=== PATIENT | male | born 1935 | race African-American/Black ===

== ENCOUNTER → 2016-06-28 | Outpatient (CLI) | payer OTHER, BC ==
--- NOTE | 2016-06-28 11:17 | MR ---
MRI Lower Extremity, Right Hip HISTORY: Right hip pain. TECHNIQUE: MRI was performed of the right hip and pelvis using a 1.5 [employer] MRI system. Large field-of -view coronal and axial imaging was obtained of the pelvis. Small oakue-og-ggdv oblique axial, obliqu e coronal, and sagittal imaging was obtained of the right hip. Standard imaging sequences were perfor med. FINDINGS: Subtle bone marrow edema is seen on the sacral side of the right sacroiliac joint. No evide nce for fracture line. No evidence for avascular necrosis of the femoral head or stress fracture of t he femoral neck. Multilevel degenerative disk and degenerative joint disease is seen in the lower lum bar spine. Femoral head neck junction of the right hip is within normal limits without evidence for an osseous b ump. There is mild periarticular spurring in the femoral head and superior acetabulum. Slight cartila ge thinning is seen superiorly. Degenerative signal and fraying is seen in the anterior superior labr um. No evidence for displaced labral tear. Capsule is unremarkable. There is abnormal signal intensity in the common hamstring tendon origin with attenuation particularl y of the semimembranosus origin at the ischial tuberosity. Milder abnormal signal intensity and atten uation is seen in the left common hamstring tendon origin. Mild edema is seen in the gluteus tendon i nsertion of the greater trochanter bilaterally without attenuation. IMPRESSION: 1. Mild early degenerative change right hip with diminutive frayed anterior-superior labrum. 2. Moderate tendinopathy and partial tear right common hamstring tendon origin. Mild tendinopathy and partial tear left common hamstring tendon origin. 3. Mild tendinopathy gluteus tendon insertion of the greater trochanter bilaterally. 4. Multilevel degenerative disk and degenerative joint disease lumbar spine.
== END ==
LOC: FIMAGING 07:56
PROVIDERS: ATTEND Family Medicine Sports Medicine
DX: M24.151 Other articular cartilage disorders, right hip (principal); M76.01 Gluteal tendinitis, right hip; M51.36 Other intervertebral disc degeneration, lumbar region

== ENCOUNTER → 2016-11-13 | Outpatient (CLI) | payer OTHER, BC | LOC: BHCLAF 08:30 | PROVIDERS: ATTEND Internal Medicine Cardiovascular Disease | DX: R06.00 Dyspnea, unspecified (principal); I34.9 Nonrheumatic mitral valve disorder, unspecified | CPT/HCPCS: 93306-PO ==

== ENCOUNTER 2016-12-07 09:34 | Day surgery (SDC) | payer OTHER, BC ==
[2016-12-07] MEDS ORDERED: DIAZEPAM 5 MG TAB PO ONE (09:39)
[2016-12-07] MEDS ORDERED: NS 1,000 ML IV ONE (09:39)
[2016-12-07] MEDS ORDERED: ASPIRIN EC 325 MG TAB PO ONE (09:39)
[2016-12-07] MEDS ORDERED: diphenhydrAMINE 25 MG CAP PO ONE (09:39)
[2016-12-07] MEDS ORDERED: FAMOTIDINE 20 MG TAB PO ONE (09:39)
--- NOTE | 2016-12-07 09:59 | CPEKG ---
Heart Rate: 65 RR Interval: 923 P-R Interval: 176 QRSD Interval: 140 QT Interval: 444 QTC Interval: 462 P [place]: 45 QRS [place]: 48 T Wave [place]: -17 EKG Severity - ABNORMAL ECG - EKG Impression: SINUS RHYTHM EKG Impression: RIGHT BUNDLE BRANCH BLOCK EKG Impression: BORDERLINE INFERIOR Q WAVES EKG Impression: RBBB IS NEW IN COMPARISON TO PRIOR (10-OCT-14) Electronically Signed By: Sean Foley 07-Dec-2016 09:59:31
[2016-12-07 10:13] LABS: % IMMATURE GRANULYOCYTES 0.4 % (0.0-1.1); ABSOLUTE IMMATURE GRANULOCYTES 0.01 10^3/uL (0.00-0.10); ADD DIFF? NO; ADD MORPH? NO; ADD SCAN? NO; ATYPICAL LYMPHOCYTE FLAG 60 (0-99); FRAGMENT RBC FLAG 0 (0-99); HEMATOCRIT 40.5 % (40.0-51.0); HEMOGLOBIN 13.5 g/dL (13.7-17.5); LEFT SHIFT FLG 0 (0-99); LIPEMIA HEMOLYSIS FLAG 80 (0-99); MEAN CELL HEMOGLOBIN 31.6 pg (27.9-34.1); MEAN CELL HEMOGLOBIN CONCENTR. 33.3 g/dL (32.4-36.7); MEAN CELL VOLUME 94.8 fL (81.5-99.8); MEAN PLATELET VOLUME 10.4 fL (8.7-11.7); PLATELET CLUMPS FLAG 10 (0-99); PLATELET COUNT 109 10^3/uL (150-400); RED BLOOD CELL COUNT 4.27 10^6/uL (4.40-6.38)
[2016-12-07] MEDS ORDERED: CLOPIDOGREL BISULFATE 75 MG TAB PO ONE (10:15)
[2016-12-07 10:21] LABS: INR 1.07 (0.83-1.16); PROTIME(PATIENT) 13.8 SEC (12.0-15.0)
[2016-12-07 10:41] LABS: ANION GAP 11 mEq/L (8-16); CALCIUM 9.8 mg/dL (8.5-10.4); CARBON DIOXIDE 23 mEq/l (22-31); CHLORIDE 107 mEq/L (97-110); CHOLESTEROL 204 mg/dL (140-220); CHOLESTEROL/HDL RATIO 6.38 RATIO (1.00-4.97); CREATININE 0.9 mg/dL (0.7-1.3); GLOMERULAR FILTRATION RATE > 60; GLUCOSE 100 mg/dL (70-100); HIGH DENSITY LIPOPROTEIN 32 mg/dL (40-65); LDL/HDL RATIO 3.69 RATIO (1.00-3.64); LOW DENSITY LIPOPROTEIN 118 mg/dL (80-100); MAGNESIUM 1.9 mg/dL (1.6-2.3); NON-HIGH DENSITY LIPOPROTEIN 172 mg/dL (90-129); POTASSIUM 4.1 mEq/L (3.5-5.2); SODIUM 141 mEq/L (134-144); TRIGLYCERIDE 274 mg/dL (40-150); VERY LOW DENSITY LIPOPROTEINS 54 mg/dL (8-25)
[2016-12-07] MEDS ORDERED: MIDAZOLAM 2 MG/2 ML VIAL ONE (10:49)
[2016-12-07] MEDS ORDERED: fentaNYL 100 MCG/2 ML INJ ONE (10:49)
[2016-12-07] MEDS ORDERED: IOPAMIDOL (ISOVUE-370) 150 ML BTL IV ONE (10:49)
[2016-12-07] MEDS ORDERED: LIDOCAINE 1% 300 MG/30 ML SDV ONE (10:49)
--- NOTE | 2016-12-07 13:00 | CPIP ---
[f rep st] INVASIVE CARDIAC PROCEDURE DATE OF PROCEDURE: 12/07/2016 PROCEDURE: 1. Coronary angiography. 2. Left ventriculography. INDICATIONS: 1. Known coronary artery disease. 2. Dyspnea on exertion. 3. Severe mitral regurgitation. 4. Anticipation of mitral valve surgery. ACCESS: Patient was prepped and draped in sterile fashion. 1% lidocaine was used to anesthetize th e right inguinal region. A 6-Djiboutian introducer sheath was placed selectively into the right common femoral artery via modified Seldinger technique. CORONARY ANGIOGRAPHY: A 6-Djiboutian JL4 was advanced to the left main coronary artery and images obtai nikita. The left main coronary artery bifurcated into LAD and circumflex coronary arteries. The left main coronary artery had a distal 15% to 20% stenosis present. The left anterior descending coronar y artery is diffusely diseased. In the proximal segment, there was ectasia present. In the mid seg ment, there is a single discrete 50% to 70% stenosis present. The first diagonal artery was a large vessel. The first diagonal artery had a proximal 70% stenosis present. The circumflex coronary ar candelaria was a small to moderate sized vessel. The circumflex coronary artery had mild diffuse disease with no stenosis greater than 20%. A 6-Djiboutian JR4 was advanced to the right coronary artery and mary ges obtained. The right coronary artery is dominant. The right coronary artery had proximal ectasi a. In the distal vessel, stents can be seen extending into the posterior descending coronary artery . There was focal ostial narrowing of the ostium of the posterior descending coronary artery approa daphne 50% to 70% in severity. LEFT VENTRICULOGRAPHY: A 6-Djiboutian pigtail catheter was advanced into the left ventricle and images obtained. Left ventricle is normal in size and had normal systolic function. Estimated ejection fr action of 60%. 3+ mitral regurgitation can be seen. COMPLICATIONS: None. CONCLUSIONS: 1. Fchblbgf-gz-mqyhri coronary artery disease. 2. Severe mitral regurgitation. 3. Normal left ventricular systolic function. 4. Plan is for surgical evaluation of mitral valve and CABG x3. /[id number]/MODL
== END 2016-12-07 17:04 | disposition home or self-care (01) ==
LOC: FCATH 09:34
PROVIDERS: ATTEND Internal Medicine Cardiovascular Disease
PROC: B2151ZZ Fluoroscopy of Left Heart using Low Osmolar Contrast (ICD-10-PCS; principal; 2016-12-07)
PROC: 4A023N7 Measurement of Cardiac Sampling and Pressure, Left Heart, Percutaneous Approach (ICD-10-PCS; principal; 2016-12-07)
PROC: B2111ZZ Fluoroscopy of Multiple Coronary Arteries using Low Osmolar Contrast (ICD-10-PCS; principal; 2016-12-07)
DX: I25.10 Atherosclerotic heart disease of native coronary artery without angina pectoris (principal); I34.0 Nonrheumatic mitral (valve) insufficiency; I10 Essential (primary) hypertension; E78.5 Hyperlipidemia, unspecified
CPT/HCPCS: C1760; J1644; J2250; J3010; Q9967

== ENCOUNTER → 2017-01-19 | Outpatient (CLI) | payer OTHER, BC | LOC: BHFA 11:00 | PROVIDERS: ATTEND Internal Medicine | DX: Z01.818 Encounter for other preprocedural examination (principal) ==

== ENCOUNTER → 2017-01-22 | Outpatient (CLI) | payer OTHER, BC | LOC: BHFA 09:15 | PROVIDERS: ATTEND Thoracic Surgery (Cardiothoracic Vascular Surgery) | DX: Z01.810 Encounter for preprocedural cardiovascular examination (principal) ==

== ENCOUNTER 2017-01-25 06:51 | Inpatient (IN) | payer OTHER, BC ==
--- NOTE | 2017-01-25 06:42 | PDGENHP ---
History and Physical - Chief Complaint preop CABG, MVR - History of Present Illness 81 yo male with known CAD and MR recently re-evaluated for worsening exertional dyspnea and chest pains and found to have progression of both coronary disease and mitral insufficiency into severe range. Associated with onset of LVE and inferior RWMA. LVEF 60%. No significant atrial enlargement, TR or PHTN. Holter monitoring negative for AF. History Information - Allergies/Home Medication List Allergies/Adverse Reactions: No Known Allergies Allergy (Verified 01/01/17 15:43) Home Medications: Aspirin [Aspirin 325 mg (OTC)] 325 mg PO HS 01/24/14 [Last Taken 12/06/16 162mg] Clopidogrel Bisulfate [Plavix (RX)] 75 mg PO DAILY 01/24/14 [Last Taken 12/07/16 ] Esomeprazole Mag Trihydrate [Nexium] 40 mg PO BID 05/23/16 [Last Taken 12/06/16 21:00] Mometasone Furoate [Elocon Cream (*)] 1 j luis TP DAILY PRN 05/23/16 [Last Taken ] Nitroglycerin [Nitrostat 0.4 mg (*)] 0.4 mg SL Q5M PRN 05/23/16 [Last Taken ] [place]-3 Fatty Acids [Fish Oil 1000 mg (*)] 2,000 mg PO BID 05/23/16 [Last Taken 12/06/16 21:00] Polyethylene Glycol 3350 [Miralax 17 gm (*)] 17 gm PO DAILY 05/23/16 [Last Taken 12/06/16] metFORMIN HCL [Metformin HCl ER] 500 mg PO DAILY 05/23/16 [Last Taken 12/06/16] Lisinopril [Zestril 20 mg (*)] 20 mg PO DAILY 12/07/16 [Last Taken 12/06/16] Metoprolol Succinate Xr [Toprol Xl 25 mg (*)] 25 mg PO DAILY 12/07/16 [Last Taken 12/06/16] Herbals/Supplements -Info Only 01/01/17 [Last Taken Unknown] Ranitidine HCl 01/01/17 [Last Taken Unknown] I have personally reviewed and updated: medical history, social history, surgical history - Past Medical History coronary artery disease (ectatic), cancer (prostate), diabetes type 2, GERD, hypertension, hyperlipidemia, myocardial infarction (Inferior wall, 2006, treated with stenting of distal RCA) Additional medical history: Systolic murmur since early adulthood, identified as MR 2006. NonHodgkins lymphoma 2004, recurrence in 2008. s/p chemo and XRT. No adenopathy by CT in 2016. 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 Urinary incontinence s/p prostate surgery. Chronic constipation. [place]ile fever 2009 - Surgical History Reports: cancer surgery (radical prostatectomy 1999), hernia repair (left inguinal, ) Additional surgical history: cataracts. hemorrhoids - Social History Smoking Status: Former smoker (10 pk yr, quitting in 1960s) Review of Systems ROS: 10pt was reviewed & negative except for what was stated in HPI & below (no new symptoms since clinic H&P December 2016) Constitutional: Reports: no symptoms Physical Exam Constitutional: no apparent distress, appears nourished Eyes: anicteric sclera Ears, Nose, Mouth, Throat: moist mucous membranes Cardiovascular: regular rate and rhythym, systolic murmur Peripheral Pulses: 2+: dorsalis-pedis (R), dorsalis-pedis (L) Respiratory: clear to auscultation Gastrointestinal: normoactive bowel sounds, soft, non-tender abdomen Skin: warm Musculoskeletal: other (symmetric tone) Psychiatric: interacting appropriately, not anxious Lab Data & Imaging Review Patient ABO/Rh A POSITIVE 01/24/17 16:00 Antibody Screen NEGATIVE 01/24/17 16:00 01/24/17: WBC 3.4, Hgb 13.5, HCT 40.8, Plt 135, Na 141, K 4.1, BUN 21, Cr 0.9, Glc 117, HgbA1c 6.8% Visualized and Interpreted Chest x-ray results: No Visualized and Interpreted EKG results: Yes EKG Interpretation: Positive for: normal sinsus rhythm (65), Q waves (lead III) , right bundle branch block Assessment & Plan Assessment: Severe 2V CAD with preserved LV systolic fx Severe MR Dilated valvular cardiomyopathy DM2, controlled Chronic leukopenia, baseline 2.4-3.4 Chronic thrombocytopenia, baseline 100s-150 Plan: CABG, mitral repair/replace, and prophylactic ligation of left atrial appendage. Consents per Dr Christopher.
[~2017-01-25 06:51] MED LIST: ADENOSINE 6 MG/2 ML VIAL ONE; ALBUMIN 5% 250 ML BOTTLE IV ONE; AMINOCAPROIC ACID 5 GM/20 ML VIAL IV ONE; AMINOCAPROIC ACID 5 GM/20 ML VIAL ONE; AMIODARONE HCL 150 MG/3 ML VIAL ONE; CALCIUM CHLORIDE 1 GM/10 ML INJ ONE; CITRATE DEXTROSE SOLN 500 ML BAG MISC ONE; CITRATE DEXTROSE SOLN 500 ML BAG ONE; DOPamine/DEXTROSE/250 ML BAG IV ONE; HEPARIN 10,000 UNIT/10 ML MDV ONE; INSULIN REGULAR HUMAN 100 UNIT in NS 100 ML IV ONE; LIDOCAINE 1% 5 ML SDV ID PRN; LIDOCAINE 2% 100 MG/5 ML SYR ONE; MAGNESIUM SULFATE 1 GM/2 ML VIAL ONE; MANNITOL 25% 12.5 GM/50 ML VIAL IV ONE; MILRINONE/DEXTROSE/100 ML BAG IV ONE; NA BICARBONATE 50 MEQ/50 ML VIAL ONE; NOREPINEPHRINE BITARTRATE 16 MG in NS 250 ML IV ONE; PHENYLEPHRINE HCL 50 MG in NS 250 ML IV ONE; POTASSIUM Cl (KCl) 20 MEQ/50 ML BAG IV ONE; PROTAMINE SULFATE 50 MG/5 ML VIAL IVP ONE; SODIUM BICARBONATE 20 MEQ, LIDOCAINE 1% 10 ML in NORMOSOL-R 1,000 ML MISC ONE; VERAPAMIL 5 MG, NITROGLYCERIN 2.5 MG, HEPARIN 500 UNIT, SODIUM BICARBONATE 0.2 MEQ in L... MISC ONE; ceFAZolin 1 GM VIAL ONE; ceFAZolin 2 GM/DEXTROSE 100 ML IV ONE; methylPREDNISolone SOD SUCC 1 GM/8 ML VIAL ONE; niCARdipine/NACL 200 ML IV ONE; niCARdipine/NACL/200 ML BAG IV ONE
[2017-01-25] MEDS ORDERED: LIDOCAINE 1% 2 ML INJ ONE (07:46)
--- NOTE | 2017-01-25 07:46 | PDANEPAE ---
ANE History of Present Illness here for mvr cabg ANE Past Medical History - Cardiovascular History Hx Hypertension: Yes Hx Arrhythmias: Yes Hx Chest Pain: No Hx Coronary Artery / Peripheral Vascular Disease: Yes Hx CHF / Valvular Disease: No Hx Palpitations: No Cardiovascular History Comment: stents x 2, [place] 2006. heart murmur. cad. htn. hyperlipidemia. mitral regurg - Pulmonary History Hx COPD: No Hx Asthma/Reactive Airway Disease: No Hx Recent Upper Respiratory Infection: No Hx Oxygen in Use at Home: No Hx Sleep Apnea: Yes Sleep Apnea Screening Result - Last Documented: Positive Pulmonary History Comment: lilian positive uses cpap- instructed pt to bring to hospital - Neurologic History Hx Cerebrovascular Accident: No Hx Seizures: No Hx Dementia: No - Endocrine History Hx Diabetes: Yes Endocrine History Comment: type 2 - Renal History Hx Renal Disorders: No - Liver History Hx Hepatic Disorders: No - Neurological & Psychiatric Hx Hx Neurological and Psychiatric Disorders: No - Cancer History Hx Cancer: Yes Cancer History Comment: non- hodgkins lymphoma with chemo and radiation - Congenital Disorder History Hx Congenital Disorders: No - GI History GERD: mild Hx Gastrointestinal Disorders: Yes Gastrointestinal History Comment: gerd. 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 Left inguinal hernia repair. right orchiectomy. prostate surgery. cardiac stents x 2. right knee surgery- arthroscopic ANE Review of Systems Review of systems is: negative - Exercise capacity Exercise capacity: <4 METS METS (RN): 3 METS ANE Patient History - Allergies Allergies/Adverse Reactions: No Known Allergies Allergy (Verified 01/01/17 15:43) - Home Medications Home medications: home medication list seen and reviewed Home Medications: Aspirin [Aspirin 325 mg (OTC)] 325 mg PO HS 01/24/14 [Last Taken 01/22/17] Clopidogrel Bisulfate [Plavix (RX)] 75 mg PO DAILY 01/24/14 [Last Taken 01/21/17 ] Esomeprazole Mag Trihydrate [Nexium] 40 mg PO BID 05/23/16 [Last Taken 01/22/17] Mometasone Furoate [Elocon Cream (*)] 1 j luis TP DAILY PRN 05/23/16 [Last Taken ] Nitroglycerin [Nitrostat 0.4 mg (*)] 0.4 mg SL Q5M PRN 05/23/16 [Last Taken ] [place]-3 Fatty Acids [Fish Oil 1000 mg (*)] 2,000 mg PO BID 05/23/16 [Last Taken 01/18/17] Polyethylene Glycol 3350 [Miralax 17 gm (*)] 17 gm PO DAILY 05/23/16 [Last Taken 01/24/17] metFORMIN HCL [Metformin HCl ER] 500 mg PO DAILY 05/23/16 [Last Taken 01/22/17] Lisinopril [Zestril 20 mg (*)] 20 mg PO DAILY 12/07/16 [Last Taken 01/24/17] Metoprolol Succinate Xr [Toprol Xl 25 mg (*)] 25 mg PO DAILY 12/07/16 [Last Taken 01/22/17] Herbals/Supplements -Info Only 01/01/17 [Last Taken 01/22/17] Ranitidine HCl 01/01/17 [Last Taken Unknown] - Smoking Hx Smoking Status: Former smoker (10 pk yr, quitting in 1960s) - Family Anes Hx Family Hx Anesthesia Complications: none ANE Labs/Vital Signs - Vital Signs Height: 178 cm Weight: 82.6 kg ANE Physical Exam - Airway Neck exam: FROM Mallampati Score: Class 1 Mouth exam: normal dental/mouth exam - Pulmonary Pulmonary: no respiratory distress - Cardiovascular Cardiovascular: regular rate and rhythym - ASA Status ASA Status: IV ANE Anesthesia Plan Anesthesia Plan: general endotracheal anesthesia Lines/Monitors: central line, FREYA
[2017-01-25] MEDS ORDERED: PROPOFOL/EMULSION 500 MG/50 ML BOTTLE IV ONE (07:58)
[2017-01-25] MEDS ORDERED: fentaNYL 100 MCG/2 ML INJ ONE ×5 (08:00→11:59)
[2017-01-25] MEDS ORDERED: MIDAZOLAM 2 MG/2 ML VIAL IVP ONE (08:04)
[2017-01-25] MEDS ORDERED: VERAPAMIL 5 MG/2 ML VIAL ONE (08:23)
[2017-01-25] MEDS ORDERED: PAPAVERINE HCL 60 MG/2 ML SDV ONE (08:23)
[2017-01-25] MEDS ORDERED: MINERAL OIL 10 ML VIAL ONE (08:24)
[2017-01-25] MEDS ORDERED: KETAMINE 100 MG/10 ML SYR ONE (08:54)
[2017-01-25] MEDS ORDERED: DEXMEDETOMIDINE HCL 400 MCG in NS 100 ML IV ONE (10:30)
[2017-01-25] MEDS ORDERED: PHENYLEPHRINE HCL 100 MCG/ML SYR ONE (12:02)
[2017-01-25] MEDS ORDERED: epHEDrine SULFATE 10 MG/ML SYR ONE (12:33)
[2017-01-25] MEDS ORDERED: MAGNESIUM SULF 2 GM/WATER 50 ML IV ONE (12:56)
[2017-01-25] MEDS ORDERED: PANTOPRAZOLE SODIUM 40 MG in NS 100 ML IV ONE (12:56)
[2017-01-25] MEDS ORDERED: ALBUMIN 5% 250 ML IV PRN (12:56)
[2017-01-25] MEDS ORDERED: POTASSIUM Cl (KCl) 50 ML IV PRN (12:56)
[2017-01-25] MEDS ORDERED: fentaNYL 100 MCG/2 ML INJ IVP PRN (12:56)
[2017-01-25] MEDS ORDERED: SODIUM CL NASAL 45 ML BTL EACHNARE PRN (12:56)
[2017-01-25] MEDS ORDERED: CEPACOL LOZENGE PO PRN (12:56)
[2017-01-25] MEDS ORDERED: BISACODYL 10 MG SUPP PR PRN (12:56)
[2017-01-25] MEDS ORDERED: POLYETHYLENE GLYCOL 3350 17 GM PKT PO PRN (12:56)
[2017-01-25] MEDS ORDERED: ONDANSETRON 4 MG/2 ML VIAL IVP PRN (12:56)
[2017-01-25] MEDS ORDERED: MEPERIDINE 25 MG/ML SYR IVP PRN (12:56)
[2017-01-25] MEDS ORDERED: D50W 25 GM/50 ML SYR IVP PRN (12:56)
[2017-01-25] MEDS ORDERED: ONDANSETRON DISINTEGRATING 4 MG TAB PO PRN (12:56)
[2017-01-25] MEDS ORDERED: ACETAMINOPHEN 650 MG SUPP PR PRN (12:56)
[2017-01-25] MEDS ORDERED: LACTULOSE 20 GM/30 ML UDCUP PO PRN (12:56)
[2017-01-25] MEDS ORDERED: MAGNESIUM HYDROXIDE 30 ML UDCUP PO PRN (12:56)
[2017-01-25] MEDS ORDERED: METOCLOPRAMIDE 10 MG/2 ML VIAL IVP PRN (12:56)
[2017-01-25] MEDS ORDERED: ALBUMIN 5% 500 ML BOTTLE IV ONE ×2 (12:59→14:05)
[2017-01-25] MEDS ORDERED: NS 1,000 ML IV SCH (13:00)
[2017-01-25] MEDS ORDERED: INSULIN REGULAR HUMAN 100 UNIT in NS 100 ML IV SCH (13:00)
[2017-01-25 13:49] LABS: CALCULATED OXYGEN SATURATION 100 % (92-95)
--- NOTE | 2017-01-25 13:53 | CPEKG ---
Heart Rate: 89 RR Interval: 674 P-R Interval: 172 QRSD Interval: 130 QT Interval: 436 QTC Interval: 531 P [place]: 69 QRS [place]: 107 T Wave [place]: 16 EKG Severity - ABNORMAL ECG - EKG Impression: SINUS RHYTHM EKG Impression: PAIRED VENTRICULAR PREMATURE COMPLEXES EKG Impression: RBBB AND LPFB Electronically Signed By: Ugo Sterling 25-Jan-2017 14:16:57
[2017-01-25] MEDS ORDERED: NALOXONE HCL 0.4 MG/ML INJ ONE (14:08)
[2017-01-25] MEDS ORDERED: CALCIUM CHLORIDE 1 GM/10 ML INJ IV ONE (14:30)
[2017-01-25 15:34] LABS: HEMATOCRIT 25.8 % (40.0-51.0); HEMOGLOBIN 8.4 g/dL (13.7-17.5); MEAN CELL HEMOGLOBIN 31.3 pg (27.9-34.1); MEAN CELL HEMOGLOBIN CONCENTR. 32.6 g/dL (32.4-36.7); MEAN CELL VOLUME 96.3 fL (81.5-99.8); RED BLOOD CELL COUNT 2.68 10^6/uL (4.40-6.38)
[2017-01-25] MEDS: MUPIROCIN 2% 22 GM OINT NS SCH ×3 (15:47→22:00)
[2017-01-25] MEDS: ceFAZolin 2 GM/DEXTROSE 100 ML IV SCH ×2 (15:57→21:05)
[2017-01-25] MEDS ORDERED: NALOXONE HCL 0.4 MG/ML INJ IVP ONE (16:00)
[2017-01-25] MEDS ORDERED: ALBUMIN 5% 500 ML IV ONE (16:00)
--- NOTE | 2017-01-25 16:38 | GCON ---
[f rep st] CONSULTATION CRITICAL CARE CONSULT DATE OF CONSULTATION: 01/25/2017 HISTORY OF PRESENT ILLNESS: The patient is an 81-year-old male with a history of coronary artery di sease and mitral regurgitation, who presented with increasing chest pain and exertional dyspnea and was found to have worsening cardiac disease. Subsequently, he underwent a coronary artery bypass gr aft today with mitral valve repair. The surgery itself was fairly uncomplicated. After arrival in the intensive care unit, did put out 600 cc of blood from his chest tubes, and received a transfusio n. During this time, his blood pressure was quite labile and was off and on pressors, but by the ti me of my exam later this afternoon, things were much more stable. There was very little chest tube output, and blood pressure was normal, without any vasopressor support. REVIEW OF SYSTEMS: Otherwise negative. PAST MEDICAL HISTORY: Includes gastroesophageal reflux disease, cervical radiculopathy, diabetes, h ypertension, non-Hodgkin's lymphoma, originally diagnosed in 2004, treated with chemotherapy and rad iation therapy. He had a recurrence in 2008 but has had no evidence of recent disease. He also has a history of prostate cancer, West Nile virus in 2009, mitral regurgitation, and coronary artery di sease, as described. PAST SURGICAL HISTORY: Includes right knee arthroscopy, cataract surgery, foot surgery, hemorrhoide ctomy, hernia repair, and radical prostatectomy. SOCIAL HISTORY: He has a remote smoking history, but none recently. Drinks some alcohol, but no al cohol-related illnesses, and no recreational drugs. FAMILY HISTORY: Includes cancer and hypertension. OUTPATIENT MEDICATIONS: Include aspirin 325 daily, Plavix 75 daily, fish oil, lisinopril 20 mg yaneli y, meclizine 25 mg daily, metformin 500 mg b.i.d., Nexium 40 mg daily, MiraLAX, ranitidine 150 mg da lucie, Toprol-XL 25 daily, zaleplon 10 mg daily, and Elocon. PHYSICAL EXAMINATION: VITAL SIGNS: His blood pressure was 100/50 and heart rate of 100, in normal sinus rhythm, respiratory rate of 12 on a ventilator, with a saturation of 100%. GENERAL: He was s edated and intubated, but in no apparent distress, not using accessory muscles for breathing. HEENT : Pupils equally round and reactive to light, nonicteric and noninjected. ET tube was in good posi tion, without excess secretions. LUNGS: Breath sounds were mildly coarse, but otherwise mostly britney ar, without wheezing. HEART: Appeared to have a regular rate and rhythm, without dullness. Mediasti nal chest tubes were in place, without evidence of surface bleeding. ABDOMEN: Soft, nontender, wit h hypoactive bowel tones. EXTREMITIES: Warm, without clubbing, cyanosis, or edema. OBJECTIVE DATA: Includes a chest x-ray with minor changes in the right lower lobe that are either t he chest tube angle or perhaps fluid in the fissure, but no large pleural effusion. There is a pleu ral effusion that looks to be on the left, and the right hemidiaphragm may be slightly elevated, tho ugh the left diaphragm is difficult to see. There is no pneumothorax. His blood gas looks normal a nd glucose 136. ASSESSMENT/PLAN: 1. Status post coronary artery bypass grafting and mitral valve replacement. Appears to be relativ caroline stable at this time. There did appear to be transient hemothorax, which may have resolved witho ut further intervention. Dr. Christopher is managing this primarily, and his hemodynamics appear to have stabilized. 2. Acute respiratory failure, requiring mechanical ventilation. Would certainly be reasonable to l eave him on the ventilator overnight, but given the stability of his situation at this time and lack of underlying pulmonary disease, weaning per protocol would be also quite reasonable. I would prob ably favor watching him on the vent overnight, and with extubation first thing in the morning. 3. Hemothorax, as described above. This appears to be fairly stable. We will follow his chest tub e output and the subsequent chest x-ray. 4. Hypertension. We should hold his medications for now. 5. Hypotension with hypovolemia. He seems to have responded well to the volume that he has gotten so far. A total of 40 minutes of critical care time was used in the evaluation of this patient. /[id number]/MODL
[2017-01-25 17:49] LABS: HEMATOCRIT 27.6 % (40.0-51.0); HEMOGLOBIN 9.2 g/dL (13.7-17.5); MEAN CELL HEMOGLOBIN 31.6 pg (27.9-34.1); MEAN CELL HEMOGLOBIN CONCENTR. 33.3 g/dL (32.4-36.7); MEAN CELL VOLUME 94.8 fL (81.5-99.8); RED BLOOD CELL COUNT 2.91 10^6/uL (4.40-6.38); RED CELL DISTRIBUTION WIDTH 14.9 % (11.5-15.2)
--- NOTE | 2017-01-25 18:24 | POSTANESTH ---
Post Anesthetic Evaluation Cardiovascular Status: Normal, Stable Respiratory Status: Normal, Stable Level of Consciousness/Mental Status: Mildly Sleepy, Arousable Pain Control: Adequate, Prn Tx Ordered Nausea/Vomiting Control: Adequate, Prn Tx Ordered Complications Possibly Related to Anesthesia: None Noted
[2017-01-25 19:31] LABS: CALCULATED OXYGEN SATURATION 96 % (92-95)
[2017-01-25] MEDS: FAMOTIDINE 20 MG/NACL 50 ML IV SCH (21:05)
[2017-01-25 23:20] LABS: HEMATOCRIT 29.1 % (40.0-51.0); HEMOGLOBIN 9.7 g/dL (13.7-17.5); MEAN CELL HEMOGLOBIN 30.7 pg (27.9-34.1); MEAN CELL HEMOGLOBIN CONCENTR. 33.3 g/dL (32.4-36.7); MEAN CELL VOLUME 92.1 fL (81.5-99.8); RED BLOOD CELL COUNT 3.16 10^6/uL (4.40-6.38); RED CELL DISTRIBUTION WIDTH 15.1 % (11.5-15.2)
[2017-01-26] MEDS: CHLORHEXIDINE GLUCONATE 15 ML UDL PO SCH ×2 (00:01→10:44)
[2017-01-26] MEDS: HYDROCODONE/APAP 5/325 TAB PO PRN ×6 (03:19→22:55)
[2017-01-26] MEDS: ACETAMINOPHEN 325 MG TAB PO PRN ×2 (03:20→06:10)
[2017-01-26 05:23] LABS: % IMMATURE GRANULYOCYTES 0.6 % (0.0-1.1); ABSOLUTE IMMATURE GRANULOCYTES 0.06 10^3/uL (0.00-0.10); ADD DIFF? NO; ADD MORPH? NO; ADD SCAN? NO; ATYPICAL LYMPHOCYTE FLAG 0 (0-99); FRAGMENT RBC FLAG 0 (0-99); HEMATOCRIT 28.1 % (40.0-51.0); HEMOGLOBIN 9.6 g/dL (13.7-17.5); LEFT SHIFT FLG 30 (0-99); LIPEMIA HEMOLYSIS FLAG 90 (0-99); MEAN CELL HEMOGLOBIN 31.6 pg (27.9-34.1); MEAN CELL HEMOGLOBIN CONCENTR. 34.2 g/dL (32.4-36.7); MEAN CELL VOLUME 92.4 fL (81.5-99.8); MEAN PLATELET VOLUME 9.9 fL (8.7-11.7); PLATELET CLUMPS FLAG 0 (0-99); PLATELET COUNT 66 10^3/uL (150-400); RED BLOOD CELL COUNT 3.04 10^6/uL (4.40-6.38); RED CELL DISTRIBUTION WIDTH 15.8 % (11.5-15.2)
[2017-01-26] MEDS: ceFAZolin 2 GM/DEXTROSE 100 ML IV SCH ×3 (05:27→21:17)
[2017-01-26 05:39] LABS: ANION GAP 11 mEq/L (8-16); CARBON DIOXIDE 23 mEq/l (22-31); CHLORIDE 111 mEq/L (97-110); CREATININE 0.7 mg/dL (0.7-1.3); GLOMERULAR FILTRATION RATE > 60; GLUCOSE 91 mg/dL (70-100); POTASSIUM 4.4 mEq/L (3.5-5.2); SODIUM 145 mEq/L (134-144)
--- NOTE | 2017-01-26 06:30 | SOAPPROG ---
SOAP Progress Note Assessment/Plan: Assessment: POD#1 CABG x 3 (LUCIO-LAD, SV-D1, SV-PDA), EVH LLE, MVR #29 Magna bioprosthesis, prophylactic AtriClip ligation left atrial appendage Progressive CAD w preserved LV systolic fx - s/p CABG3. Secondary prevention with baby ASA, BB as allowed by BP, and statin when eating well. Plavix stopped as PDA bypassed. Sx severe MR w dilated cardiomyopathy - MV not amenable to repair and replaced with a bioprosthesis. Hemodynamically labile early postop course, intermittently on low dose pressor support. No further support overnight. Adequately auto-diuresing moderate volume overload w stable renal fx. Antithrombotic prophylaxis with Coumadin x 3 mo. Target INR 2.5. Range 2-3. Acute expected blood loss anemia with thrombocytopenia and mild coagulopathy - Exacerbated by chronic thrombocytopenia and Plavix use. Stable s/p 2u PRBC. CTOP thinning. No evidence active bleeding. Care with anticoagulation while platelet counts depressed. DM2, controlled - Preop A1c of 6.8%, on OHAs. Postop hyperglycemia managed with insulin gtt. Transition to SSI as per protocol. Likely can restart metformin within 48hrs. CARLOS on CPAP - Stable. Home device in use. Plan: Routine POD#1 orders re lines, drains, orals and mobility. Likely tx to PCU later today. 01/26/17 06:26 Subjective: Rough night d/t pain. Currently comfortable. No nausea or dizziness. Objective: Vital Signs Temp Pulse Resp BP Pulse Ox 37.2 C 87 15 127/56 H 99 01/26/17 05:00 01/26/17 05:00 01/26/17 05:00 01/26/17 05:00 01/26/17 05:00 Laboratory Results 01/26/17 05:15 01/26/17 05:15 01/25/17 01/26/17 01/27/17 05:59 05:59 05:59 Intake Total 500 Output Total 3125 Balance -2625 Extubated last pm without incident. Home CPAP used. Modest suppl O2 req. Holding SR, no tachyarrhythmias. No backup pacing triggered. MAPs predom 70s overnoc. Excellent UOP. CXR-> No PTX, no pulm vasc congestion, bibasilar atelectasis; left pl tube a bit cephalad and gutter w small eff. CTOP somewhat elev first few hrs after surg, tapering off by last shift. Labs as expected. Plts stable in 60 range. Physical Exam - Physical Exam General Appearance: alert, no apparent distress Respiratory: lungs clear (grossly), other (blakes x 3 y-d to pleurovac, serosang drainage, no tidal, no AL) Cardiac/Chest: regular rate, rhythm, other (Sternum grossly stable. Sternotomy CDI. Vwires intact.) Abdomen: non-tender, soft Skin: warm/dry Extremities: swelling (trace - 1+), other (LLE wrap intact) ICD10 Worksheet Patient Problems: Problems Problem Status Onset Acute blood loss anemia Acute S/P CABG x 3 Acute ~01/25/17 S/P mitral valve replacement with bioprosthetic valve Acute ~01/25/17 CAD, multiple vessel Chronic Chronic leukopenia Chronic Dilated cardiomyopathy Chronic Severe mitral regurgitation Chronic Thrombocytopenia Chronic
[2017-01-26] MEDS ORDERED: HEPARIN 5,000 UNIT/0.5 ML SYR SC SCH (09:00)
[2017-01-26] MEDS ORDERED: ASPIRIN 81 MG CHEWABLE TAB TUBE PRN (09:00)
[2017-01-26 09:48] LABS: POTASSIUM 4.7 mEq/L (3.5-5.2)
[2017-01-26] MEDS: FAMOTIDINE 20 MG/NACL 50 ML IV SCH (10:43)
[2017-01-26] MEDS: PANTOPRAZOLE SODIUM 40 MG TAB PO SCH (10:44)
[2017-01-26] MEDS: MUPIROCIN 2% 22 GM OINT NS SCH ×2 (10:44→20:11)
[2017-01-26] MEDS: ASPIRIN 81 MG CHEWABLE TAB PO SCH (10:44)
[2017-01-26 13:59] LABS: POTASSIUM 4.8 mEq/L (3.5-5.2)
--- NOTE | 2017-01-26 14:31 | GOP ---
[f rep st] OPERATIVE REPORT DATE OF OPERATION: 01/25/2017 SURGEON: Bill Christopher DO [employer] AGENT: AVA Sheikh ANESTHESIOLOGIST: Ty Kerns MD PREOPERATIVE DIAGNOSIS: Class 2 congestive heart failure with severe mitral insufficiency, ischemic cardiomyopathy, and arteriosclerotic heart disease. POSTOPERATIVE DIAGNOSIS: Class 2 congestive heart failure with severe mitral insufficiency, ischemi c cardiomyopathy, and arteriosclerotic heart disease. PROCEDURE PERFORMED: 1. Mitral valve replacement with chordal sparing, with a 29 Magna bioprosthesis. 2. AtriClip to the left atrial appendage. 3. Endoscopic vein harvest. 4. Coronary artery bypass grafting x3 with the left internal mammary artery to the left anterior de scending artery, saphenous vein graft to the diagonal, and saphenous vein graft to the posterior ileana cending artery. FINDINGS: DESCRIPTION OF PROCEDURE: The patient was brought to the operating room, intubated, and monitoring lines were placed. He was prepped and draped in sterile classical manner. The mammary and vein wer e harvested endoscopically by COLUMBA Sheikh, who first assisted throughout the procedure. A sternoto my was performed. The patient was cannulated. The aorta was without thickening or calcification. There was evidence of a big, previous inferior wall myocardial infarction with scar. Echo revealed predominantly A2 and A3 as well as P3 prolongation of the chordae with regurgitation. After cannulation, cardiopulmonary bypass was begun. A cardioplegic arrest was obtained with antegr teresa cardioplegia, retrograde cardioplegia, topical hypothermia, and systemic cooling. Initially, gr afting was completed both distally and proximally with a cross-clamp on. Distal targets were all le ast 2 mm in diameter. The conduits were excellent. We then put an AtriClip across the base of the left atrial appendage, flush with the left atrium. A 45 mm clip was utilized. We then opened the l eft atrium through the right superior pulmonary vein. The mitral valve was inspected. He had evide nce of posterior papillary muscle infarction with elongation of chordae to both anterior and posteri or leaflets. Initial attempts at repair revealed that this would be a very complex repair with less likelihood of long-term success and therefore, I did a chordal-sparing resection of the anterior le aflet, incorporating it into the mitral valve replacement with a 29 Magna bioprosthesis, interrupted 2-0 Tycron pledgeted mattress sutures, utilizing AtriClips. The left atrium was closed. CO2 had been infused throughout the procedure. The cross-clamp was removed with suction on the asce nding aortic vent. Spontaneous cardiac activity was noted to resume. When no further air was ident ified, he was taken out of Trendelenburg, weaned from bypass. The heparin was reversed with protami ne. The cannula was removed and oversewn. Two ventricular pacing wires, and 2 pleural, 1 mediastin al drain were placed. The thymic fat and pericardium were closed. Chest was closed in standard fas hion. Patient was returned to ICU in stable condition. /[id number]/MODL
[2017-01-26] MEDS ORDERED: NITROGLYCERIN 0.4 MG BTL SL PRN (14:38)
[2017-01-26] MEDS: INSULIN LISPRO 100 UNIT/ML SC SCH (19:01)
[2017-01-26] MEDS: MESALAMINE 250 MG PO SCH (20:08)
[2017-01-26] MEDS: SENNOSIDES/DOCUSATE SODIUM TAB PO SCH (20:16)
[2017-01-27 05:07] LABS: % IMMATURE GRANULYOCYTES 0.4 % (0.0-1.1); ABSOLUTE IMMATURE GRANULOCYTES 0.03 10^3/uL (0.00-0.10); ADD DIFF? NO; ADD MORPH? NO; ADD SCAN? NO; ATYPICAL LYMPHOCYTE FLAG 0 (0-99); FRAGMENT RBC FLAG 0 (0-99); HEMATOCRIT 26.4 % (40.0-51.0); HEMOGLOBIN 8.6 g/dL (13.7-17.5); LEFT SHIFT FLG 20 (0-99); LIPEMIA HEMOLYSIS FLAG 80 (0-99); MEAN CELL HEMOGLOBIN CONCENTR. 32.6 g/dL (32.4-36.7); MEAN CELL VOLUME 95.3 fL (81.5-99.8); MEAN PLATELET VOLUME 11.1 fL (8.7-11.7); PLATELET CLUMPS FLAG 0 (0-99); PLATELET COUNT 63 10^3/uL (150-400); RED BLOOD CELL COUNT 2.77 10^6/uL (4.40-6.38); RED CELL DISTRIBUTION WIDTH 16.3 % (11.5-15.2)
[2017-01-27 05:23] LABS: INR 1.37 (0.83-1.16); PROTIME(PATIENT) 16.9 SEC (12.0-15.0)
[2017-01-27 05:35] LABS: ANION GAP 10 mEq/L (8-16); CALCIUM 8.5 mg/dL (8.5-10.4); CARBON DIOXIDE 25 mEq/l (22-31); CHLORIDE 104 mEq/L (97-110); CREATININE 0.9 mg/dL (0.7-1.3); GLOMERULAR FILTRATION RATE > 60; GLUCOSE 163 mg/dL (70-100); POTASSIUM 4.7 mEq/L (3.5-5.2); SODIUM 139 mEq/L (134-144)
[2017-01-27] MEDS: HYDROCODONE/APAP 5/325 TAB PO PRN ×3 (06:19→20:25)
--- NOTE | 2017-01-27 07:20 | SOAPPROG ---
SOAP Progress Note Assessment/Plan: Assessment: POD#2 CABG x 3 (LUCIO-LAD, SV-D1, SV-PDA), EVH LLE, MVR #29 Magna bioprosthesis, prophylactic AtriClip ligation left atrial appendage Progressive CAD w preserved LV systolic fx - s/p CABG3. Secondary prevention with baby ASA, BB as allowed by BP, and statin when eating well. Plavix stopped as PDA bypassed. Sx severe MR w dilated cardiomyopathy - MV not amenable to repair and replaced with a bioprosthesis. Hemodynamically labile early postop course, intermittently on low dose pressor support. No further support overnight. Adequately auto-diuresing moderate volume overload w stable renal fx. Antithrombotic prophylaxis with Coumadin x 3 mo. Target INR 2.5. Range 2-3. INR 1.37 today. Will start Lasix today. Acute expected blood loss anemia with thrombocytopenia and mild coagulopathy - Exacerbated by chronic thrombocytopenia and Plavix use. Stable s/p 2u PRBC. CTOP thinning. No evidence active bleeding. Plt count stable at 63 (66). Ok to start Coumadin today. DM2, controlled - Preop A1c of 6.8%, on OHAs. Postop hyperglycemia managed with insulin gtt. Transition to SSI as per protocol. Likely can restart metformin within 48hrs. CARLOS on CPAP - Stable. Home device in use. Plan: Coumadin 5mg tonight. D/c chest tubes. Will start low dose BB today. Lasix 40mg daily. Metformin when taking good po. Subjective: Patient without complaints. Reports good pain control. Objective: Vital Signs Temp Pulse Resp BP Pulse Ox 36.4 C 99 16 113/70 96 01/27/17 04:00 01/27/17 04:00 01/27/17 04:00 01/27/17 04:00 01/27/17 04:00 Laboratory Results 01/27/17 04:50 01/27/17 04:50 01/26/17 01/27/17 01/28/17 05:59 05:59 05:59 Intake Total 500 1050 Output Total 3525 1005 Balance -3025 45 PT 16.9 SEC (12.0-15.0) H 01/27/17 04:50 INR 1.37 (0.83-1.16) H 01/27/17 04:50 Physical Exam - Physical Exam General Appearance: WD/WN, alert, no apparent distress Respiratory: lungs clear, decreased breath sounds (bases) Cardiac/Chest: regular rate, rhythm Abdomen: normal bowel sounds, non-tender, soft Skin: warm/dry Extremities: other (warm, 1+ pitting edema lower extremities L>R) Neuro/Psych: alert, oriented x 3 ICD10 Worksheet Patient Problems: Problems Problem Status Onset Acute blood loss anemia Acute S/P CABG x 3 Acute ~01/25/17 S/P mitral valve replacement with bioprosthetic valve Acute ~01/25/17 CAD, multiple vessel Chronic Chronic leukopenia Chronic Dilated cardiomyopathy Chronic Severe mitral regurgitation Chronic Thrombocytopenia Chronic
[2017-01-27] MEDS: INSULIN LISPRO 100 UNIT/ML SC SCH ×3 (08:45→18:00)
[2017-01-27] MEDS: PANTOPRAZOLE SODIUM 40 MG TAB PO SCH (08:45)
[2017-01-27] MEDS: ASPIRIN 81 MG CHEWABLE TAB PO SCH (08:45)
[2017-01-27] MEDS: POLYETHYLENE GLYCOL 3350 17 GM PKT PO SCH (08:45)
[2017-01-27] MEDS: SENNOSIDES/DOCUSATE SODIUM TAB PO SCH ×2 (08:46→20:24)
[2017-01-27] MEDS: MESALAMINE 250 MG PO SCH ×2 (08:46→20:23)
[2017-01-27] MEDS ORDERED: metFORMIN HCL 500 MG TAB PO SCH (09:00)
[2017-01-27] MEDS: FUROSEMIDE 40 MG TAB PO SCH (12:03)
[2017-01-27] MEDS: POTASSIUM CL 20 MEQ TAB PO SCH (12:03)
--- NOTE | 2017-01-27 12:33 | GCON ---
[f rep st] CONSULTATION Initial Visit REASON FOR VISIT: History of lymphoid follicular lymphoma and history of chronic pancytopenia. 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 He received rituximab-CVP followed by maintenance rituximab. He did well up until 2008, when he had biopsy-proven local recurrence in the left retroperitoneum. He received Rituxan-CHOP x4, followed by radiation to residual mass and then maintenance rituximab through 2011. Since that time, there has been no evidence of recurrent disease. He has a history of chronic low blood counts, primarily low white count. He has had a normal bone marrow, so some of this might be due to previous therapy and some of this is due to racial variations, particularly the low white count. He has known coronary disease and significant mitral regurgitation and he was having increasing chest pain and exertional dyspnea. He underwent coronary artery bypass and mitral valve repair on January 25. He is recovering well without significant problems. His white count has responded appropriately. His platelet count dropped post treatment, but has been stable. He denies any bleeding or bruising. PAST MEDICAL HISTORY: He has no known drug allergies. HOME MEDICATIONS: Include Zaleplon, mesalamine, Plavix, aspirin, MiraLAX, fish oil, nitroglycerin as needed, metoprolol, lisinopril, Nexium, metformin, and ranitidine. CHRONIC ILLNESSES: Include: 1. Lymphoma as described above. 2. Chronic mild pancytopenia with normal marrow. 3. Diabetes. 4. Hypertension. 5. GERD. 6. Remote history of prostate cancer. 7. West Nile Virus 2009. 8. Coronary artery disease and mitral regurgitation as per HPI. SURGICAL HISTORY: Includes right knee arthroscopy, cataract surgery, foot, hemorrhoidectomy, hernia repair and a radical prostatectomy. SOCIAL HISTORY: Not a current smoker. Drinks alcohol only occasionally. No history of drug use. 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 FAMILY HISTORY: Mother of uterine cancer. Father of coronary artery disease. REVIEW OF SYSTEMS: 10-point review of systems performed. Pertinent positives HPI, otherwise negative. PHYSICAL EXAM: VITALS: He is afebrile. Vital signs are stable. GENERAL: He is well-appearing, , in no distress. HEENT: Unremarkable. No purpura in his oral cavity. SKIN: Reveals no unexpected bruising or any petechiae. LUNGS: Clear. CARDIAC: Regular. ABDOMEN: Soft. Positive bowel sounds. NEURO: Grossly intact. LABS: White count today is normal 7500, hemoglobin is a little bit lower at 8.6 , platelet count is 63,000. When I saw him in the office just about 3 months ago, his white count was 3300, hemoglobin 13.6, platelet count 110,000. CT of his chest, abdomen and pelvis performed a year ago showed no evidence of lymphoma. IMPRESSION: 1. History of follicular lymphoma, currently no evidence of active disease. 2. Chronic pancytopenia, probably a combination of his race and previous treatment. Americans tend to have a lower normal white count range on average. He does not have trouble with infections and he seems to respond well during stress. The other counts are probably also due to the recent surgery plus previous stresses on his marrow. They are remaining stable, and anticipate they will slowly get better with time. 3. Coronary artery disease and mitral valve regurgitation, status post surgical repair. I will follow along tangentially to watch his counts and be available for any questions. From a hematology standpoint, I did not recommend any further intervention. Although he is at risk of complications with aggressive anticoagulation, the benefit based on his recent procedure outweighs the risk. /[id number]/MODL MTDD
[2017-01-27] MEDS ORDERED: WARFARIN SODIUM 5 MG TAB PO ONE (16:00)
[2017-01-27] MEDS: METOPROLOL TARTRATE 25 MG TAB PO SCH (20:24)
[2017-01-28] MEDS: HYDROCODONE/APAP 5/325 TAB PO PRN ×3 (05:02→22:14)
[2017-01-28 06:02] LABS: HEMATOCRIT 25.5 % (40.0-51.0); HEMOGLOBIN 8.2 g/dL (13.7-17.5); MEAN CELL HEMOGLOBIN 30.9 pg (27.9-34.1); MEAN CELL HEMOGLOBIN CONCENTR. 32.2 g/dL (32.4-36.7); MEAN CELL VOLUME 96.2 fL (81.5-99.8); RED BLOOD CELL COUNT 2.65 10^6/uL (4.40-6.38)
[2017-01-28 06:11] LABS: INR 1.32 (0.83-1.16); PROTIME(PATIENT) 16.4 SEC (12.0-15.0)
[2017-01-28 06:26] LABS: ANION GAP 9 mEq/L (8-16); CALCIUM 8.5 mg/dL (8.5-10.4); CARBON DIOXIDE 26 mEq/l (22-31); CHLORIDE 102 mEq/L (97-110); CREATININE 0.8 mg/dL (0.7-1.3); GLOMERULAR FILTRATION RATE > 60; GLUCOSE 142 mg/dL (70-100); POTASSIUM 4.5 mEq/L (3.5-5.2); SODIUM 137 mEq/L (134-144)
--- NOTE | 2017-01-28 07:21 | SOAPPROG ---
SOAP Progress Note Assessment/Plan: Assessment: POD#3 CABG x 3 (LUCIO-LAD, SV-D1, SV-PDA), EVH LLE, MVR #29 Magna bioprosthesis, prophylactic AtriClip ligation left atrial appendage Progressive CAD w preserved LV systolic fx - s/p CABG3. Secondary prevention with baby ASA, BB, and statin. Plavix stopped as PDA bypassed. Sx severe MR w dilated cardiomyopathy - MV not amenable to repair and replaced with a bioprosthesis. Hemodynamically labile early postop course, intermittently on low dose pressor support. No further support. Adequately auto- diuresing moderate volume overload w stable renal fx. Antithrombotic prophylaxis with Coumadin x 3 mo. Target INR 2.5. Range 2-3. INR 1.32 today. On Lasix. Acute expected blood loss anemia with thrombocytopenia and mild coagulopathy - Exacerbated by chronic thrombocytopenia and Plavix use. Stable s/p 2u PRBC. H& H today 8.2/25.5 (8.6/26.4). Will start Iron. CTOP thin. No evidence active bleeding. Plt count stable at 71 (63). On Coumadin. DM2, controlled - Preop A1c of 6.8%, on OHAs. Postop hyperglycemia managed initally with insulin gtt and transitioned to SSI. Will restart metformin today. CARLOS on CPAP - Stable. Home device in use. Plan: Coumadin 5mg tonight. Start Iron. Will d/c remaining chest tube. Start Metformin. Will cut pacing wires at the skin today. Subjective: Patient without complaints. Reports good pain control. Objective: Vital Signs Temp Pulse Resp BP Pulse Ox 36.5 C 95 12 100/67 97 01/28/17 07:17 01/28/17 07:17 01/28/17 07:17 01/28/17 07:17 01/28/17 07:17 Laboratory Results 01/28/17 05:55 01/28/17 05:55 01/27/17 01/28/17 01/29/17 05:59 05:59 05:59 Intake Total 1170 770 200 Output Total 1470 510 400 Balance -300 260 -200 PT 16.4 SEC (12.0-15.0) H 01/28/17 05:55 INR 1.32 (0.83-1.16) H 01/28/17 05:55 Physical Exam - Physical Exam General Appearance: WD/WN, alert, no apparent distress Respiratory: lungs clear, decreased breath sounds (right base) Cardiac/Chest: regular rate, rhythm Abdomen: normal bowel sounds, non-tender, soft Skin: warm/dry Extremities: pedal edema (1+ pitting edema left lower extremity, minimal edema right lower extremity) Neuro/Psych: alert, oriented x 3 ICD10 Worksheet Patient Problems: Problems Problem Status Onset Acute blood loss anemia Acute S/P CABG x 3 Acute ~01/25/17 S/P mitral valve replacement with bioprosthetic valve Acute ~01/25/17 CAD, multiple vessel Chronic Chronic leukopenia Chronic Dilated cardiomyopathy Chronic Severe mitral regurgitation Chronic Thrombocytopenia Chronic
[2017-01-28] MEDS: INSULIN LISPRO 100 UNIT/ML SC SCH ×3 (07:51→17:56)
[2017-01-28] MEDS: FUROSEMIDE 40 MG TAB PO SCH ×2 (08:55→15:41)
[2017-01-28] MEDS: METOPROLOL TARTRATE 25 MG TAB PO SCH ×2 (08:55→20:13)
[2017-01-28] MEDS: POTASSIUM CL 20 MEQ TAB PO SCH ×2 (08:56→20:10)
[2017-01-28] MEDS: ASPIRIN 81 MG CHEWABLE TAB PO SCH (08:56)
[2017-01-28] MEDS: SENNOSIDES/DOCUSATE SODIUM TAB PO SCH ×2 (08:56→20:12)
[2017-01-28] MEDS: MESALAMINE 250 MG PO SCH ×2 (08:56→20:11)
[2017-01-28] MEDS: PANTOPRAZOLE SODIUM 40 MG TAB PO SCH (08:56)
[2017-01-28] MEDS: metFORMIN HCL 500 MG TAB PO SCH (08:56)
[2017-01-28] MEDS: POLYETHYLENE GLYCOL 3350 17 GM PKT PO SCH (08:56)
[2017-01-28] MEDS ORDERED: MOMETASONE FUROATE 15 GM CRTUBE TP PRN (09:00)
[2017-01-28] MEDS: FERROUS SULFATE 325 MG TAB PO SCH ×2 (09:00→20:12)
[2017-01-28] MEDS: ATORVASTATIN CALCIUM 40 MG TAB PO SCH (09:00)
[2017-01-28] MEDS: AMIODARONE HCL 200 MG TAB PO SCH ×2 (10:50→20:13)
--- NOTE | 2017-01-28 12:41 | SOAPPROG ---
CON Progress Note Assessment/Plan: E&M for NHL and h/o pancytopenia * Follicular NHL: no evidence of active disease * Anemia and Thrombocytopenia: exacerbated by surgery; due to age and other factors, his hgb may be slow to respond. Platelets continue to improve. No further recommendations from heme standpoint. * H/O leukopenia: counts are normal and no sign of infection * CAD w preserved LV systolic function: POD#3 CABG x3. Secondary prevention with baby ASA, beta-marion, and statin. Plavix stopped as PDA bypassed. * Severe MR with dilated cardiomyopathy: per surgery, valve not repairable so replaced with bioprosthesis. Antithrombotic (warfarin) prophylaxis for 3 mo. with target INR 2-3 recommended by surgery. Subjective: Patient currently sleeping Objective: Vital Signs Temp Pulse Resp BP Pulse Ox 36.5 C 82 18 98/56 L 98 01/28/17 07:17 01/28/17 11:11 01/28/17 11:11 01/28/17 11:11 01/28/17 11:11 Laboratory Results 01/28/17 05:55 01/28/17 05:55 01/27/17 01/28/17 01/29/17 05:59 05:59 05:59 Intake Total 1170 770 440 Output Total 1470 510 450 Balance -300 260 -10 PT 16.4 SEC (12.0-15.0) H 01/28/17 05:55 INR 1.32 (0.83-1.16) H 01/28/17 05:55 Physical Exam - Physical Exam General Appearance: no apparent distress ICD10 Worksheet Patient Problems: Problems Problem Status Onset Acute blood loss anemia Acute S/P CABG x 3 Acute ~01/25/17 S/P mitral valve replacement with bioprosthetic valve Acute ~01/25/17 CAD, multiple vessel Chronic Chronic leukopenia Chronic Dilated cardiomyopathy Chronic Severe mitral regurgitation Chronic Thrombocytopenia Chronic
[2017-01-28] MEDS ORDERED: WARFARIN SODIUM 5 MG TAB PO ONE (16:00)
[2017-01-29] MEDS: HYDROCODONE/APAP 5/325 TAB PO PRN ×2 (05:57→18:07)
[2017-01-29 06:13] LABS: HEMATOCRIT 24.6 % (40.0-51.0); MEAN CELL HEMOGLOBIN 31.4 pg (27.9-34.1); MEAN CELL HEMOGLOBIN CONCENTR. 32.5 g/dL (32.4-36.7); MEAN CELL VOLUME 96.5 fL (81.5-99.8); RED BLOOD CELL COUNT 2.55 10^6/uL (4.40-6.38); RED CELL DISTRIBUTION WIDTH 15.7 % (11.5-15.2)
[2017-01-29 06:21] LABS: INR 1.63 (0.83-1.16); PROTIME(PATIENT) 19.4 SEC (12.0-15.0)
[2017-01-29 06:31] LABS: ANION GAP 7 mEq/L (8-16); CALCIUM 8.5 mg/dL (8.5-10.4); CARBON DIOXIDE 25 mEq/l (22-31); CHLORIDE 102 mEq/L (97-110); CREATININE 0.9 mg/dL (0.7-1.3); GLOMERULAR FILTRATION RATE > 60; GLUCOSE 131 mg/dL (70-100); POTASSIUM 4.4 mEq/L (3.5-5.2); SODIUM 134 mEq/L (134-144)
--- NOTE | 2017-01-29 06:49 | SOAPPROG ---
SOAP Progress Note Assessment/Plan: Assessment: POD#4 CABG x 3 (LUCIO-LAD, SV-D1, SV-PDA), EVH LLE, MVR #29 Magna bioprosthesis, prophylactic AtriClip ligation left atrial appendage Progressive CAD w preserved LV systolic fx - s/p CABG3. Tubes and wires out. Secondary prevention with baby ASA, statin, and BB uptitrated as tolerated. Plavix stopped as PDA bypassed. Sx severe MR w dilated cardiomyopathy - MV not amenable to repair and replaced with a bioprosthesis. Hemodynamically labile early postop course, intermittently on low dose pressor support x 24h. Actively diuresing moderate volume overload w stable renal fx. Antithrombotic prophylaxis with Coumadin x 3 mo. Target INR 2.5. Range 2-3. AF prophylaxis with amiodarone. Acute expected blood loss anemia with thrombocytopenia and mild coagulopathy - Exacerbated by chronic thrombocytopenia and Plavix use. Ongoing downward drift s /p 2u PRBC and 1u Plt. No evidence active bleeding. No overt sx. Will tx one addtl PRBC for tachy with marginal SBP. Fe suppl x 2 weeks. Care with anticoagulation. DM2, controlled - Preop A1c of 6.8%, on OHAs. Postop hyperglycemia managed with insulin gtt, transitioning to SSI/metfomin when appropriate. CARLOS on CPAP - Stable. Home device in use. Plan: Transfuse 1u PRBC. Cont Coumadin 5 mg daily. Cont daily diuresis. Cont inc activity as tolerated. Dispo - Anticipate home tomorrow. 01/29/17 06:48 Subjective: Feels well. Comfortable. Improving mobility. +BM. Objective: Vital Signs Temp Pulse Resp BP Pulse Ox 36.8 C 87 10 L 99/63 L 95 01/29/17 04:00 01/29/17 04:00 01/29/17 04:00 01/29/17 04:00 01/29/17 04:00 Laboratory Results 01/29/17 05:50 01/29/17 05:50 01/28/17 01/29/17 01/30/17 05:59 05:59 05:59 Intake Total 770 1430 Output Total 510 1200 400 Balance 260 230 -400 PT 19.4 SEC (12.0-15.0) H 01/29/17 05:50 INR 1.63 (0.83-1.16) H 01/29/17 05:50 Holding SR w PACs and PVCs. Insufficient BP to inc BB. Min suppl O2 req. CXR-> sm rt pleural eff, left basilar atelectasis. Balanced I/Os. +4 kg overall. INR and plt count rising appropriately. Physical Exam - Physical Exam General Appearance: alert, no apparent distress Respiratory: decreased breath sounds (bases) Cardiac/Chest: regular rate, rhythm, other (Sternotomy and LLE venotomy CDI) Abdomen: soft Skin: warm/dry Extremities: swelling (trace RLE, 1+ (donor) LLE) ICD10 Worksheet Patient Problems: Problems Problem Status Onset Acute blood loss anemia Acute S/P CABG x 3 Acute ~01/25/17 S/P mitral valve replacement with bioprosthetic valve Acute ~01/25/17 CAD, multiple vessel Chronic Chronic leukopenia Chronic Dilated cardiomyopathy Chronic Severe mitral regurgitation Chronic Thrombocytopenia Chronic
[2017-01-29] MEDS: POLYETHYLENE GLYCOL 3350 17 GM PKT PO SCH (08:36)
[2017-01-29] MEDS: ASPIRIN 81 MG CHEWABLE TAB PO SCH (08:37)
[2017-01-29] MEDS: ATORVASTATIN CALCIUM 40 MG TAB PO SCH (08:37)
[2017-01-29] MEDS: POTASSIUM CL 20 MEQ TAB PO SCH ×2 (08:37→21:20)
[2017-01-29] MEDS: FUROSEMIDE 40 MG TAB PO SCH ×2 (08:37→14:55)
[2017-01-29] MEDS: PANTOPRAZOLE SODIUM 40 MG TAB PO SCH (08:37)
[2017-01-29] MEDS: OMEGA-3 FATTY ACIDS 1,000 MG CAP PO SCH ×2 (08:37→21:21)
[2017-01-29] MEDS: FERROUS SULFATE 325 MG TAB PO SCH ×2 (08:37→21:21)
[2017-01-29] MEDS: AMIODARONE HCL 200 MG TAB PO SCH ×2 (08:37→21:21)
[2017-01-29] MEDS: METOPROLOL TARTRATE 25 MG TAB PO SCH ×2 (08:38→21:21)
[2017-01-29] MEDS: metFORMIN HCL 500 MG TAB PO SCH (08:38)
[2017-01-29] MEDS: MESALAMINE 250 MG PO SCH ×2 (08:38→21:21)
[2017-01-29] MEDS: SENNOSIDES/DOCUSATE SODIUM TAB PO SCH (08:54)
[2017-01-29] MEDS: INSULIN LISPRO 100 UNIT/ML SC SCH ×3 (11:10→18:07)
[2017-01-29] MEDS ORDERED: WARFARIN SODIUM 5 MG TAB PO ONE (16:00)
[2017-01-29] MEDS ORDERED: SENNOSIDES/DOCUSATE SODIUM TAB PO PRN (21:00)
[2017-01-30] MEDS: HYDROCODONE/APAP 5/325 TAB PO PRN ×3 (05:51→22:58)
[2017-01-30 06:12] LABS: HEMATOCRIT 27.5 % (40.0-51.0); HEMOGLOBIN 8.9 g/dL (13.7-17.5); MEAN CELL HEMOGLOBIN 30.9 pg (27.9-34.1); MEAN CELL HEMOGLOBIN CONCENTR. 32.4 g/dL (32.4-36.7); MEAN CELL VOLUME 95.5 fL (81.5-99.8); RED BLOOD CELL COUNT 2.88 10^6/uL (4.40-6.38); RED CELL DISTRIBUTION WIDTH 15.9 % (11.5-15.2)
[2017-01-30 06:21] LABS: INR 1.89 (0.83-1.16); PROTIME(PATIENT) 21.8 SEC (12.0-15.0)
--- NOTE | 2017-01-30 07:29 | SOAPPROG ---
SOAP Progress Note Assessment/Plan: Assessment: POD#5 CABG x 3 (LUCIO-LAD, SV-D1, SV-PDA), EVH LLE, MVR #29 Magna bioprosthesis, prophylactic AtriClip ligation left atrial appendage Progressive CAD w preserved LV systolic fx - s/p CABG3. Tubes and wires out. Secondary prevention with baby ASA, statin, and BB uptitrated as tolerated. Plavix stopped as PDA bypassed. Sx severe MR w dilated cardiomyopathy - MV not amenable to repair and replaced with a bioprosthesis. Hemodynamically labile early postop course, intermittently on low dose pressor support x 24h. Actively diuresing moderate volume overload w stable renal fx. Antithrombotic prophylaxis with Coumadin x 3 mo. Target INR 2.5. Range 2-3. AF prophylaxis with amiodarone. Acute expected blood loss anemia with thrombocytopenia and mild coagulopathy - Exacerbated by chronic thrombocytopenia and Plavix use. Ongoing downward drift s /p 2u PRBC and 1u Plt. No evidence active bleeding. Addtl PRBC transfused yest for optimized hemodynamics moreso than sx. Fe suppl x 2 weeks. Care with anticoagulation. DM2, controlled - Preop A1c of 6.8%, on OHAs. Postop hyperglycemia managed with insulin gtt, and transitioned to SSI/metfomin. No sig correctional needs. CARLOS on CPAP - Stable. Home device in use. Plan: Reduce lasix to 40 mg once daily. Cont coumadin 5 mg daily. Cont amio 200 mg BID. Reduce to 200 mg daily at discharge. Dispo - Anticipate home w [facility] tomorrow or [facility] 01/30/17 07:27 Subjective: Feels well. A little peppier after blood yest. Able to complete 1 lap around [place] with 4WW. Appetite ok. +BM. Min incisional discomfort. Feels ready to go home when Dr Christopher feels he's ready. Home services requested. Objective: Vital Signs Temp Pulse Resp BP Pulse Ox 36.9 C 84 18 110/79 97 01/30/17 04:00 01/30/17 04:00 01/30/17 04:00 01/30/17 04:00 01/30/17 04:00 Laboratory Results 01/30/17 06:05 01/29/17 05:50 01/29/17 01/30/17 01/31/17 05:59 05:59 05:59 Intake Total 1430 1470 Output Total 1200 1450 Balance 230 20 PT 21.8 SEC (12.0-15.0) H 01/30/17 06:05 INR 1.89 (0.83-1.16) H 01/30/17 06:05 SR with freq PVCs/bigeminy. More robust SBP after PRBC. O2 wean in progress. Adequate fluid balance. Down 1 kg overnoc. +3 kg overall. INR on the rise. Physical Exam - Physical Exam General Appearance: alert, no apparent distress Respiratory: crackles (bases) Cardiac/Chest: regular rate, rhythm, other (Sternum grossly stable. Sternotomy and LLE venotomy CDI) Abdomen: non-tender, soft Skin: warm/dry Extremities: swelling (no visible RLE, 1+ (donor) LLE) ICD10 Worksheet Patient Problems: Problems Problem Status Onset Acute blood loss anemia Acute S/P CABG x 3 Acute ~01/25/17 S/P mitral valve replacement with bioprosthetic valve Acute ~01/25/17 CAD, multiple vessel Chronic Chronic leukopenia Chronic Dilated cardiomyopathy Chronic Severe mitral regurgitation Chronic Thrombocytopenia Chronic
[2017-01-30] MEDS: MESALAMINE 250 MG PO SCH ×2 (08:37→20:45)
[2017-01-30] MEDS: POLYETHYLENE GLYCOL 3350 17 GM PKT PO SCH (08:37)
[2017-01-30] MEDS: AMIODARONE HCL 200 MG TAB PO SCH ×2 (08:38→20:47)
[2017-01-30] MEDS: POTASSIUM CL 20 MEQ TAB PO SCH (08:38)
[2017-01-30] MEDS: ATORVASTATIN CALCIUM 40 MG TAB PO SCH (08:38)
[2017-01-30] MEDS: FUROSEMIDE 40 MG TAB PO SCH (08:38)
[2017-01-30] MEDS: METOPROLOL TARTRATE 25 MG TAB PO SCH ×2 (08:38→20:46)
[2017-01-30] MEDS: FERROUS SULFATE 325 MG TAB PO SCH ×2 (08:38→20:47)
[2017-01-30] MEDS: ASPIRIN 81 MG CHEWABLE TAB PO SCH (08:38)
[2017-01-30] MEDS: PANTOPRAZOLE SODIUM 40 MG TAB PO SCH (08:38)
[2017-01-30] MEDS: metFORMIN HCL 500 MG TAB PO SCH (08:38)
[2017-01-30] MEDS: OMEGA-3 FATTY ACIDS 1,000 MG CAP PO SCH ×2 (08:38→20:48)
[2017-01-30] MEDS: INSULIN LISPRO 100 UNIT/ML SC SCH ×3 (08:42→18:45)
[2017-01-30] MEDS ORDERED: POTASSIUM CL 20 MEQ TAB PO SCH (09:00)
[2017-01-30] MEDS ORDERED: FUROSEMIDE 20 MG TAB PO SCH (09:00)
[2017-01-30] MEDS: WARFARIN SODIUM 5 MG TAB PO SCH (14:56)
[2017-01-30] MEDS: traMADol 50 MG TAB PO PRN (14:56)
[2017-01-31 07:01] LABS: POTASSIUM 4.1 mEq/L (3.5-5.2)
[2017-01-31 07:16] LABS: INR 2.11 (0.83-1.16); PROTIME(PATIENT) 23.8 SEC (12.0-15.0)
[2017-01-31] MEDS ORDERED: FUROSEMIDE 40 MG/4 ML VIAL IVP ONE (08:12)
[2017-01-31] MEDS ORDERED: POTASSIUM CL 20 MEQ TAB PO ONE (08:12)
[2017-01-31] MEDS: POLYETHYLENE GLYCOL 3350 17 GM PKT PO SCH (08:44)
[2017-01-31] MEDS: TORSEMIDE 20 MG TAB PO SCH ×2 (08:45→16:32)
[2017-01-31] MEDS: OMEGA-3 FATTY ACIDS 1,000 MG CAP PO SCH ×2 (08:46→20:45)
[2017-01-31] MEDS: FERROUS SULFATE 325 MG TAB PO SCH ×2 (08:46→20:46)
[2017-01-31 08:47] LABS: HEMATOCRIT 27.7 % (40.0-51.0)
[2017-01-31] MEDS: MESALAMINE 250 MG PO SCH ×2 (08:47→20:44)
[2017-01-31] MEDS: ATORVASTATIN CALCIUM 40 MG TAB PO SCH (08:47)
[2017-01-31] MEDS: ASPIRIN 81 MG CHEWABLE TAB PO SCH (08:47)
[2017-01-31] MEDS: metFORMIN HCL 500 MG TAB PO SCH (08:47)
[2017-01-31] MEDS: AMIODARONE HCL 200 MG TAB PO SCH ×2 (08:48→20:46)
[2017-01-31] MEDS: PANTOPRAZOLE SODIUM 40 MG TAB PO SCH (08:48)
[2017-01-31] MEDS: METOPROLOL TARTRATE 25 MG TAB PO SCH ×2 (08:48→20:44)
--- NOTE | 2017-01-31 09:06 | SOAPPROG ---
SOAP Progress Note Assessment/Plan: Assessment: POD#6 CABG x 3 (LUCIO-LAD, SV-D1, SV-PDA), EVH LLE, MVR #29 Magna bioprosthesis, prophylactic AtriClip ligation left atrial appendage Progressive CAD w preserved LV systolic fx - s/p CABG3. Tubes and wires out. Secondary prevention with baby ASA, statin, and BB uptitrated as tolerated. Plavix stopped as PDA bypassed. Sx severe MR w dilated cardiomyopathy - MV not amenable to repair and replaced with a bioprosthesis. Hemodynamically labile early postop course, intermittently on low dose pressor support x 24h. Actively diuresing moderate volume overload w stable renal fx. Antithrombotic prophylaxis with Coumadin x 3 mo. Target INR 2.5. Range 2-3. AF prophylaxis with amiodarone. Acute expected blood loss anemia with thrombocytopenia and mild coagulopathy - Exacerbated by chronic thrombocytopenia and Plavix use. Ongoing downward drift s /p 2u PRBC and 1u Plt. No evidence active bleeding. Addtl PRBC transfused yest for optimized hemodynamics moreso than sx. Fe suppl x 2 weeks. Care with anticoagulation. DM2, controlled - Preop A1c of 6.8%, on OHAs. Postop hyperglycemia managed with insulin gtt, and transitioned to SSI/metfomin. No sig correctional needs. CARLOS on CPAP - Stable. Home device in use. Plan: Intensify diuresis. Decr coumadin to 2.5 mg today. Cont amio 200 mg BID. Reduce to 200 mg daily at discharge. Cont metoprolol 12.5 mg BID. Dispo - Anticipate home w [facility] tomorrow. 01/31/17 09:06 Subjective: Feels fine. Improving strength and stamina. Worried about move to [place] next week , and burden of stress on . Would like to delay discharge until tomorrow afternoon. Objective: Vital Signs Temp Pulse Resp BP Pulse Ox 36.8 C 84 16 113/70 90 L 01/31/17 08:00 01/31/17 08:48 01/31/17 08:00 01/31/17 08:48 01/31/17 08:00 Laboratory Results 01/31/17 08:23 01/31/17 06:35 01/30/17 01/31/17 02/01/17 05:59 05:59 05:59 Intake Total 1470 940 Output Total 1450 800 Balance 20 140 PT 23.8 SEC (12.0-15.0) H 01/31/17 06:35 INR 2.11 (0.83-1.16) H 01/31/17 06:35 Holding SR 80s. BP too low to inc BB. Off O2. Positive fluid balance. +3 kg overall. CXR-> decr left pl eff, persistent small rt pl eff. Therapeutic INR. - Pending Discharge Pending Discharge Within 24 Hours: Yes Pending Discharge Date: 02/01/17 Pending Discharge Time: 11:00 Physical Exam - Physical Exam General Appearance: alert, no apparent distress Respiratory: crackles (rt base) Cardiac/Chest: regular rate, rhythm, other (Sternum grossly stable. Sternotomy and LLE venotomy CDI) Abdomen: non-tender, soft Skin: warm/dry Extremities: swelling (1+ vein donor leg) ICD10 Worksheet Patient Problems: Problems Problem Status Onset Acute blood loss anemia Acute S/P CABG x 3 Acute ~01/25/17 S/P mitral valve replacement with bioprosthetic valve Acute ~01/25/17 CAD, multiple vessel Chronic Chronic leukopenia Chronic Dilated cardiomyopathy Chronic Severe mitral regurgitation Chronic Thrombocytopenia Chronic
[2017-01-31] MEDS: INSULIN LISPRO 100 UNIT/ML SC SCH ×3 (09:24→18:34)
[2017-01-31] MEDS ORDERED: TORSEMIDE 10 MG TAB PO SCH (10:00)
[2017-01-31] MEDS: traMADol 50 MG TAB PO PRN (11:32)
[2017-01-31] MEDS: HYDROCODONE/APAP 5/325 TAB PO PRN ×2 (12:26→22:20)
[2017-01-31] MEDS ORDERED: WARFARIN SODIUM 2.5 MG TAB PO ONE (16:00)
[2017-01-31] MEDS: WARFARIN SODIUM 5 MG TAB PO SCH (16:23)
[2017-02-01 06:09] LABS: INR 2.05 (0.83-1.16); PROTIME(PATIENT) 23.3 SEC (12.0-15.0)
[2017-02-01 06:15] LABS: ANION GAP 11 mEq/L (8-16); CALCIUM 8.9 mg/dL (8.5-10.4); CARBON DIOXIDE 27 mEq/l (22-31); CHLORIDE 96 mEq/L (97-110); CREATININE 0.9 mg/dL (0.7-1.3); GLOMERULAR FILTRATION RATE > 60; GLUCOSE 110 mg/dL (70-100); POTASSIUM 3.9 mEq/L (3.5-5.2); SODIUM 134 mEq/L (134-144)
--- NOTE | 2017-02-01 08:39 | SOAPPROG ---
SOAP Progress Note Assessment/Plan: Assessment: POD#7 CABG x 3 (LUCIO-LAD, SV-D1, SV-PDA), EVH LLE, MVR #29 Magna bioprosthesis, prophylactic AtriClip ligation left atrial appendage Progressive CAD w preserved LV systolic fx - s/p CABG3. Tubes and wires out. Secondary prevention with baby ASA, statin, and BB uptitrated as tolerated. Plavix stopped as PDA bypassed. Sx severe MR w dilated cardiomyopathy - MV not amenable to repair and replaced with a bioprosthesis. Hemodynamically labile early postop course, intermittently on low dose pressor support x 24h. Actively diuresing moderate volume overload w stable renal fx. Antithrombotic prophylaxis with Coumadin x 3 mo. Target INR 2.5. Range 2-3. AF prophylaxis with amiodarone. Acute expected blood loss anemia with thrombocytopenia and mild coagulopathy - Exacerbated by chronic thrombocytopenia and Plavix use. Stable s/p 3u PRBC and 1u Plt. H/H > 03/09, plt count > 90 maintained. Fe suppl x 2 weeks. DM2, controlled - Preop A1c of 6.8%, on OHAs. Postop hyperglycemia managed with insulin gtt, and transitioned to SSI/metfomin. No sig correctional needs. CARLOS on CPAP - Stable. Home device in use. Plan: Ready for discharge home w [facility]. Instructions re diet, meds, activity, wound care and f/u reviewed. 02/01/17 10:38 Subjective: Cont improvement in stamina and mobility. No acute concerns going home. Objective: Vital Signs Temp Pulse Resp BP Pulse Ox 36.8 C 76 16 112/62 100 02/01/17 04:00 02/01/17 04:00 02/01/17 04:00 02/01/17 04:00 02/01/17 04:00 Laboratory Results 01/31/17 08:23 02/01/17 05:40 01/31/17 02/01/17 02/02/17 05:59 05:59 05:59 Intake Total 940 970 Output Total 800 1925 Balance 140 -955 PT 23.3 SEC (12.0-15.0) H 02/01/17 05:40 INR 2.05 (0.83-1.16) H 02/01/17 05:40 Cardioresp status stable. Good response to intensified diuresis. Now within 1 kg of preop wt. Echo Nl chamber size x 4, LVEF 55%, nl bioprosthetic valve fx. INR therapeutic. Physical Exam - Physical Exam General Appearance: alert, no apparent distress Respiratory: normal breath sounds Cardiac/Chest: regular rate, rhythm, other (Sternotomy and LLE venotomy CDI) Abdomen: non-tender, soft Skin: warm/dry Extremities: swelling (1+ (donor) LLE) ICD10 Worksheet Patient Problems: Problems Problem Status Onset Acute blood loss anemia Acute S/P CABG x 3 Acute ~01/25/17 S/P mitral valve replacement with bioprosthetic valve Acute ~01/25/17 CAD, multiple vessel Chronic Chronic leukopenia Chronic Dilated cardiomyopathy Chronic Severe mitral regurgitation Chronic Thrombocytopenia Chronic
[2017-02-01] MEDS ORDERED: FERROUS SULFATE 325 MG TAB PO SCH (09:00)
[2017-02-01] MEDS ORDERED: AMIODARONE HCL 200 MG TAB PO SCH (09:00)
[2017-02-01] MEDS ORDERED: POTASSIUM CL 20 MEQ TAB PO ONE (09:00)
[2017-02-01] MEDS: INSULIN LISPRO 100 UNIT/ML SC SCH ×2 (09:09→14:03)
[2017-02-01] MEDS: ASPIRIN 81 MG CHEWABLE TAB PO SCH (09:51)
[2017-02-01] MEDS: MESALAMINE 250 MG PO SCH (09:51)
[2017-02-01] MEDS: OMEGA-3 FATTY ACIDS 1,000 MG CAP PO SCH (09:51)
[2017-02-01] MEDS: ATORVASTATIN CALCIUM 40 MG TAB PO SCH (09:51)
[2017-02-01] MEDS: metFORMIN HCL 500 MG TAB PO SCH (09:52)
[2017-02-01] MEDS: METOPROLOL TARTRATE 25 MG TAB PO SCH (09:52)
[2017-02-01] MEDS: POLYETHYLENE GLYCOL 3350 17 GM PKT PO SCH (09:56)
[2017-02-01] MEDS ORDERED: TORSEMIDE 10 MG TAB PO SCH (10:00)
[2017-02-01 11:30] VITALS: BP 144/58; TEMP 97.7
[2017-02-01 12:02] VITALS: PULSE 75; RESP 19; O2SAT 97
--- NOTE | 2017-02-01 12:19 | ECHO ---
[id number] + + [address] : : [place] [address] : : [phone] + + Adult Echocardiographic Report + ---------+ :Name: PROMISE COLMENARES Date: 02/01/2017 08:45 AM : : Hospital Admission Number: [id number] Kellee weber: 219: :: 1935 Gender: Male Height: 70 i n : :Age: 81 yrs Race: BAA Weight: 189 lb : :Reason For Study: Eval LV Fx : : BSA: 2.0 met ers2 : :History: s/p MVR#29 CE magna bovine valve : + ---------+ MMode/2D Measurements \T\ Calculations IVSd: 0.88 cm LVIDd: 3.7 cm FS: 26.2 % Ao root diam: 3.6 cm LVPWd: 0.99 cm LVIDs: 2.7 cm EDV(Teich): 57.4 ml ACS: 1.6 cm ESV(Teich): 27.4 ml EF(Teich): 52.2 % Normal Measurement Values: + + :LVIDd (3.5-5.7cm) IVSd (0.6-1.1cm) LVPWd (0.6-1.1cm) Aortic Root (2.0-3.7cm)Left Atrium (1.5-4.0cm): :LV Vol(d) (76-115ml) LV Vol(s) (29-48ml) Ejec Fraction (50-65%)PV Honorio (0.6- 1.2m/s) TV Honorio (0.4-1.0m/s) : :MV E Honorio (0.8-1.0m/s)MV A Honorio (0.3-1.0m/s)LVOT Honorio (0.7-1.2m/s) Asc Ao Honorio ( 0.9-1.8m/s) : + + Doppler Measurements \T\ Calculations MV E max honorio: MV V2 max: Ao V2 max: LV V1 max: 114.8 cm/sec 195.5 cm/sec 143.9 cm/sec 87.6 cm/sec MV A max honorio: MV max PG: Ao max PG: LV V1 max P.2 cm/sec 15.3 mmHg 8.3 mmHg 3.1 mmHg MV E/A: 1.2 MV V2 mean: 110.7 cm/sec MV mean P.4 mmHg MV V2 VTI: 49.0 cm PA V2 max: TR max honorio: 99.1 cm/sec 309.5 cm/sec PA max P.9 mmHg TR max P.3 mmHg RAP systole: 5.0 mmHg RVSP(TR): 43.3 mmHg Left Ventricle The left ventricle is normal in size. There is normal left ventricular wall thickness. Ejection Fraction = 55%. Septal motion is consistent with post- operative state. Right Ventricle The right ventricle is normal size. Atria The left atrial size is normal. Right atrial size is normal. Mitral Valve There is a bioprosthetic valve in the mitral position. The valve appears to sit and function normally. The mean gradient is 6.4 mmHg. Tricuspid Valve Normal tricuspid valve. There is mild tricuspid regurgitation. Right ventricular systolic pressure is 43mmHg. Aortic Valve The aortic valve is not well visualized. There is no aortic stenosis. There is no aortic insufficiency. Pulmonic Valve The pulmonic valve is not well visualized. There is no pulmonic valvular regurgitation. Great Vessels The aortic root is normal size. Pericardium/Pleural There is no pericardial effusion. Conclusion A complete two-dimensional transthoracic echocardiogram was performed (2D, M-mode, Doppler and color flow Doppler). 1. The left ventricle is normal in size. Septal motion is consistent with post-operative state. The Ejection Fraction = 55%. 2. The left atrial size is normal. 3. There is a bioprosthetic valve in the mitral position. The valve appears to sit and function normally. The mean gradient is 6.4 mmHg. 4. Right ventricular systolic pressure is 43mmHg. 5. The aortic valve is not well visualized. There is no aortic stenosis. There is no aortic insufficiency. 6. There is no pericardial effusion. 7. When compared to the 05/23/16 study. The mitral valve has been replaced. Final Reading Physician: Sean Jaffe MD electronically signed on 02/01/2017 12:17 PM Ordering Physician: Crystal Reyna Performed By: Christopher Garcia, CS
--- NOTE | 2017-02-01 14:13 | PDIAF ---
- Diagnosis Diagnosis: DM2, CARLOS, CAD s/p CABG Code Status: Full Code - Medication Management Discharge Medications: Medications to Continue on Transfer Esomeprazole Mag Trihydrate [Nexium] 40 mg PO BID 05/23/16 [Last Taken 01/22/17] Mometasone Furoate [Elocon Cream (*)] 1 j luis TP DAILY PRN 05/23/16 [Last Taken ] Nitroglycerin [Nitrostat 0.4 mg (*)] 0.4 mg SL Q5M PRN 05/23/16 [Last Taken ] [place] Vision-3 Fatty Acids [Fish Oil 1000 mg (*)] 2,000 mg PO BID 05/23/16 [Last Taken 01/22/17] Polyethylene Glycol 3350 [Miralax 17 gm (*)] 17 gm PO DAILY 05/23/16 [Last Taken 01/25/17] Ranitidine HCl [Zantac] 150 mg PO BID 01/01/17 [Last Taken 01/25/17 09:00] Mesalamine [Pentasa 500 mg] 1,000 mg PO BID 01/26/17 [Last Taken Unknown] Zaleplon [ZALEPLON] 10 mg PO HS PRN 01/26/17 [Last Taken 01/24/17] metFORMIN HCL [Glucophage 500 mg (*)] 500 mg PO DAILY 01/26/17 [Last Taken 01/24] Acetaminophen [Tylenol 325mg (*)] 325 - 650 mg PO Q4HRS PRN #0 tab 02/01/17 [ Last Taken Unknown] Amiodarone HCl [Pacerone (*)] 200 mg PO DAILY #14 tab 02/01/17 [Last Taken Unknown] Aspirin [Aspirin 81mg (*)] 81 mg PO DAILY #0 tab.chew 02/01/17 [Last Taken Unknown] Atorvastatin Calcium [Lipitor 40 mg (*)] 40 mg PO DAILY #60 tab 02/01/17 [Last Taken Unknown] Ferrous Sulfate [Ferrous Sulf 325 MG (*)] 325 mg PO DAILY #14 tab 02/01/17 [ Last Taken Unknown] Hydrocodone/APAP 5/325 [[place] 5/325 (*)] 1 tab PO Q4-8PRN PRN #30 tab 02/01/17 [ Last Taken Unknown] Metoprolol Tartrate [Lopressor 25 mg (*)] 12.5 mg PO BID #30 tab 02/01/17 [Last Taken Unknown] Potassium Cl [Klor-Con 20 meq (*)] 20 meq PO DAILY #10 tab 02/01/17 [Last Taken Unknown] Torsemide [Demadex] 30 mg PO DAILY AT 10AM #10 tab 02/01/17 [Last Taken Unknown] Warfarin Sodium [Coumadin 5MG (*)] 5 mg PO DAILY AT 4PM #90 tab 02/01/17 [Last Taken Unknown] Discharge Medications: Refer to the Discharge Home Medication list for PRN reason. PICC Care - Routine: N/A - Orders Services needed: Registered Nurse (cardiorespiratory monitoring, therapeutic drug monitoring; daily x 4 days), Physical Therapy (3x weekly until enrolled in outpatient cardiac rehab) Diet Recommendation: cardiac -low fat low salt, ADA 2000 consistent carb Diet Texture: Regular Texture Diet Weigh Patient: daily (call Dr Christopher's office for overnight gain > 2 lbs or absolute gain > 5 lbs) Burks: Not applicable Wound Care Instructions: daily soap and water. ok to leave open to air. avoid ointments or underwater immersion until scabs off Activity/Weight Bearing Restrictions: sternal precautions x 3 more weeks. avoid push/pull activities. Avoid lifting > 10 lbs with an outstretched arm Additional: Call [facility] (Ashwin) for resting HR < 60 or > 120, SBP < 90 or > 150, weight gain > 2 lbs or progressive leg swelling, or any wound concerns - Labs/Radiology BMP Date: 02/05/17 (results to Dr Christopher) CBC Date: 02/05/17 (results to Dr Christopher) PT/INR Date: 02/05/17 (results to Dr Christopher) Imaging Orders: CXR prior to surgical appointment Call or Fax Lab and Imaging Results to: Dr Christopher's nurse Sandra Moran - Follow Up Care Current Providers and Referrals: Gopi Restrepo MD [Primary Care Provider] - Bill Christopher DO [Doctor of Osteopathy] - 02/06/17 10:45 am Sean Jaffe MD [Medical Doctor] - (Follow up in 6 weeks. Appointment to be established during surgical visit)
[2017-02-01] MEDS: WARFARIN SODIUM 5 MG TAB PO SCH (15:40)
--- NOTE | 2017-02-01 17:03 | PDDCSUM ---
Discharge Summary Discharge Summary: DATE OF ADMISSION: 01/25/17 DATE OF DISCHARGE: 02/01/17 DISPOSITION: Home with home healthcare, RN and PT PRINCIPAL ADMISSION DIAGNOSES: 1. Severe multivessel coronary artery disease 2. Severe mitral valve insufficiency 3. Dilated cardiomyopathy PRINCIPAL DISCHARGE DIAGNOSES: 1. Status post coronary artery bypass grafting x 3 2. Status post mitral valve replacement with a bioprosthesis 3. Status post prophylactic AtriClip ligation of the left atrial appendage 4. Acute expected blood loss anemia with thrombocytopenia and mild coagulopathy HISTORY OF PRESENT ILLNESS: 81 yo male with longstanding hx of CAD and MR re-evaluated for worsening exertional dyspnea with intermittent chest pains and found to have progression of mitral insufficiency into severe range, mild dilatation of LV (EDV 6cm), new flow limiting disease of LAD system, new flow limiting disease of PDA, and new inferior wall hypokinesis. Overall LVEF 60%. No atrial arrhythmias, significant TR, or prohibitive neurologic risk. Admitted for elective CABG and MVR. PERTINENT PAST MEDICAL HISTORY: 1. CAD s/p IMI 2005 treated with stenting of distal RCA. Maintained on DAPT. 2. Mild-moderate carotid atherosclerosis by preop carotid US. 3. Frequent PVCs with multiple morphologies by preop Holter monitoring. 4. Type II diabetes - controlled on Metformin. Preop A1c 6.8%. 5. HTN 6. Hyperlipidemia 7. CARLOS on CPAP 8. NonHodgkin's lymphoma - in remission s/p chemo and XRT. Secondary pancytopenia. 9. Urinary incontinence s/p radical prostatectomy 10. GERD MEDICATIONS ON ADMISSION: Plavix 75 mg daily, ASA 325 mg daily, Toprol XL 25 mg daily, Lisinopril 20 mg daily, Nitrostat 0.4 mg SL q 5 min prn, Nexium 40 mg BID, Zantac 150 mg BID, Mesalamine 1,000 mg BID, Miralax 17 gm daily, Metformin 500 mg daily, Zalepon 10 mg hs prn, Mometasone Furoate cream to affected area once daily prn ALLERGIES/SENSITIVITIES: NKDA CONSULTANTS: Pulmonology/critical care (Vincent), Hematology/oncology (Marialuisa) PROCEDURES/IMAGIN/17 (Ashwin): Coronary artery bypass grafting x 3 (LUCIO-LAD, SV-D1, SV-PDA). Takedown left internal mammary artery. Endoscopic vein harvesting LLE. Mitral valve replacement with a 29 mm Walters Magna bovine pericardial bioprosthesis. Prophylactic AtriClip ligation of the left atrial appendage. 02/01 (Jaffe): Transthoracic echocardiogram ABBREVIATED HOSPITAL COURSE BY ACTIVE PROBLEM LIST: 1. Progressive CAD w preserved LV systolic fx - s/p CABG3. Secondary prevention with baby ASA, statin, and BB. Plavix stopped as PDA bypassed. 2. Sx severe MR w dilated cardiomyopathy - MV not amenable to repair and replaced with a bioprosthesis. Hemodynamically labile early postop course, intermittently on low dose pressor support x 24h. Moderate volume overload actively diuresed w stable renal fx. Normalized chamber size and preserved BiV systolic fx demonstrated by baseline postop echo. Antithrombotic prophylaxis with Coumadin x 3 mo. Target INR 2.5. Range 2-3. AF prophylaxis with amiodarone. 3. Acute expected blood loss anemia with thrombocytopenia and mild coagulopathy - Exacerbated by chronic thrombocytopenia and Plavix use. Stable s/p 3u PRBC and 1u Plt. H/H > 03/09, plt count > 90 maintained. Fe suppl x 2 weeks. 4. DM2, controlled - Postop hyperglycemia managed with insulin gtt, and transitioned to SSI/metfomin. No sig correctional needs. DISCHARGE CLINICAL INFORMATION: Sternum grossly stable. Sternotomy CDI, sutured, +Dermabond. HR 70s-80s. SBP 110s. SpO2 97% RA. Wt 1 kg above admission at 82.6kilos. WBC 6, Hgb 9, HCT 27.7, Plt 95, Na 134, K 3.9, Cr 0.9 FSBG 122-160 Coumadin flow sheet: Date INR mg 01/27 1.37 5 01/28 1.32 5 01/29 1.63 5 01/30 1.89 5 01/31 2.11 2.5 02/01 2.05 5 DISCHARGE MEDICATIONS: As on admission with the following adjustments: 1. Stop Plavix. 2. Decrease aspirin to 81 mg daily while on Coumadin. Hold for INR > 3. 3. Hold Toprol XL 25 mg daily 4. Hold Lisinopril 20 mg daily NEW prescriptions: 1. Amiodarone 200 mg daily x 2 weeks. 2. Coumadin 5 mg daily or as directed by INR. 3. Demadex 30 mg daily until back to baseline weight and no swelling. 4. KlorCon 20 meq with Demadex. 5. Metoprolol tartrate 12.5 mg BID. 6. Ferrous sulfate 325 mg daily x 2 weeks. 7. Atorvastatin 40 mg daily or as directed by cardiology. 8. Hydrocodone 5/325 one-half to two tabs q 4-8h prn incisional discomfort. FOLLOW UP APPOINTMENTS: 1. CV surgery: with Dr Chirstopher at [facility] on 02/06 at 10:45 am. 2. Cardiology: with Dr Jaffe at [facility] within 4-6 weeks. Appointment to be established during surgical visit. FOLLOW UP TESTING: CBC, BMP, INR on 02/05. Results to [facility]. CXR prior to surgical appointment.
[2017-02-02] MEDS ORDERED: POTASSIUM CL 20 MEQ TAB PO SCH (09:00)
== END 2017-02-01 18:08 | disposition home health service (06) | DRG 220 ==
LOC: F2N 06:51 → F2W 01-26 15:35
PROVIDERS: ADMIT Thoracic Surgery (Cardiothoracic Vascular Surgery); ATTEND Thoracic Surgery (Cardiothoracic Vascular Surgery)
PROC: 02RG08Z Replacement of Mitral Valve with Zooplastic Tissue, Open Approach (ICD-10-PCS; principal; 2017-01-25 08:15)
PROC: 02100Z9 Bypass Coronary Artery, One Artery from Left Internal Mammary, Open Approach (ICD-10-PCS; principal; 2017-01-25 08:15)
PROC: 06BQ4ZZ Excision of Left Saphenous Vein, Percutaneous Endoscopic Approach (ICD-10-PCS; principal; 2017-01-25 08:15)
PROC: 02L70CK Occlusion of Left Atrial Appendage with Extraluminal Device, Open Approach (ICD-10-PCS; principal; 2017-01-25 08:15)
PROC: 5A1221Z Performance of Cardiac Output, Continuous (ICD-10-PCS; principal; 2017-01-25 08:15)
PROC: 021109W Bypass Coronary Artery, Two Arteries from Aorta with Autologous Venous Tissue, Open Approach (ICD-10-PCS; principal; 2017-01-25 08:15)
PROC: 30233R1 Transfusion of Nonautologous Platelets into Peripheral Vein, Percutaneous Approach (ICD-10-PCS; 2017-01-26)
PROC: 30233N1 Transfusion of Nonautologous Red Blood Cells into Peripheral Vein, Percutaneous Approach (ICD-10-PCS; 2017-01-29)
DX: I34.0 Nonrheumatic mitral (valve) insufficiency (principal); D62 Acute posthemorrhagic anemia; I42.0 Dilated cardiomyopathy; I25.10 Atherosclerotic heart disease of native coronary artery without angina pectoris; I25.5 Ischemic cardiomyopathy; D69.6 Thrombocytopenia, unspecified; I25.2 Old myocardial infarction; E11.9 Type 2 diabetes mellitus without complications; G47.33 Obstructive sleep apnea (adult) (pediatric); Z85.72 Personal history of non-Hodgkin lymphomas; K21.9 Gastro-esophageal reflux disease without esophagitis; I10 Essential (primary) hypertension; Z79.84 Long term (current) use of oral hypoglycemic drugs
CPT/HCPCS: 82947-QW; 97116-GP; 97161-GP; 97165-GO; 97535-GO; G0103; G8978-GP-CI; G8978-GP-CJ; G8979-GP-CI; G8980-GP-CI; G8987-GO-CK; G8988-GO-CI; G8989-GO-CI; J0153; J0282; J0690; J1265; J1644; J1815; J1940; J2001; J2150; J2250; J2260; J2310; J2370; J2405; J2440; J2704; J2720; J2930; J3010; J7060; P9016; P9035; P9041

== ENCOUNTER → 2017-02-06 | Outpatient (CLI) | payer OTHER, BC | LOC: FLAB 10:22 | PROVIDERS: ATTEND Thoracic Surgery (Cardiothoracic Vascular Surgery) | DX: Z95.1 Presence of aortocoronary bypass graft (principal) ==

== ENCOUNTER → 2017-08-20 | Outpatient (CLI) | payer OTHER, BC | LOC: CIMAGING 15:12 | PROVIDERS: ATTEND Family Medicine | DX: R10.819 Abdominal tenderness, unspecified site (principal); C85.90 Non-Hodgkin lymphoma, unspecified, unspecified site | CPT/HCPCS: 76882-PO ==

== ENCOUNTER → 2017-09-10 | Outpatient (CLI) | payer OTHER, BC ==
[~2017-09-10] MED LIST changes: -ADENOSINE 6 MG/2 ML VIAL ONE; -ALBUMIN 5% 250 ML BOTTLE IV ONE; -AMINOCAPROIC ACID 5 GM/20 ML VIAL IV ONE; -AMINOCAPROIC ACID 5 GM/20 ML VIAL ONE; -AMIODARONE HCL 150 MG/3 ML VIAL ONE; -CALCIUM CHLORIDE 1 GM/10 ML INJ ONE; -CITRATE DEXTROSE SOLN 500 ML BAG MISC ONE; -CITRATE DEXTROSE SOLN 500 ML BAG ONE; -DOPamine/DEXTROSE/250 ML BAG IV ONE; -HEPARIN 10,000 UNIT/10 ML MDV ONE; -INSULIN REGULAR HUMAN 100 UNIT in NS 100 ML IV ONE; +IOPAMIDOL (ISOVUE-300) 100 ML BTL ONE; -LIDOCAINE 1% 5 ML SDV ID PRN; -LIDOCAINE 2% 100 MG/5 ML SYR ONE; -MAGNESIUM SULFATE 1 GM/2 ML VIAL ONE; -MANNITOL 25% 12.5 GM/50 ML VIAL IV ONE; -MILRINONE/DEXTROSE/100 ML BAG IV ONE; -NA BICARBONATE 50 MEQ/50 ML VIAL ONE; -NOREPINEPHRINE BITARTRATE 16 MG in NS 250 ML IV ONE; -PHENYLEPHRINE HCL 50 MG in NS 250 ML IV ONE; -POTASSIUM Cl (KCl) 20 MEQ/50 ML BAG IV ONE; -PROTAMINE SULFATE 50 MG/5 ML VIAL IVP ONE; -SODIUM BICARBONATE 20 MEQ, LIDOCAINE 1% 10 ML in NORMOSOL-R 1,000 ML MISC ONE; -VERAPAMIL 5 MG, NITROGLYCERIN 2.5 MG, HEPARIN 500 UNIT, SODIUM BICARBONATE 0.2 MEQ in L... MISC ONE; -ceFAZolin 1 GM VIAL ONE; -ceFAZolin 2 GM/DEXTROSE 100 ML IV ONE; -methylPREDNISolone SOD SUCC 1 GM/8 ML VIAL ONE; -niCARdipine/NACL 200 ML IV ONE; -niCARdipine/NACL/200 ML BAG IV ONE
== END ==
LOC: CIMAGING 10:25
PROVIDERS: ATTEND Surgery
DX: R59.9 Enlarged lymph nodes, unspecified (principal); K59.00 Constipation, unspecified
CPT/HCPCS: 74177; Q9967

== ENCOUNTER → 2017-10-29 | Outpatient (CLI) | payer OTHER, BC | LOC: BHCLAF 14:00 | PROVIDERS: ATTEND Internal Medicine Cardiovascular Disease | DX: R07.89 Other chest pain (principal) | CPT/HCPCS: 93005-PO ==

== ENCOUNTER → 2018-03-04 | Outpatient (CLI) | payer OTHER, BC | LOC: CIMAGING 14:23 | PROVIDERS: ATTEND Internal Medicine Cardiovascular Disease | DX: R07.89 Other chest pain (principal); Z95.4 Presence of other heart-valve replacement; Z98.890 Other specified postprocedural states | CPT/HCPCS: 71046-PO ==

== ENCOUNTER → 2018-04-01 | Outpatient (CLI) | payer OTHER, BC | LOC: BHFA 13:30 | PROVIDERS: ATTEND Internal Medicine Interventional Cardiology | DX: R07.9 Chest pain, unspecified (principal); I25.10 Atherosclerotic heart disease of native coronary artery without angina pectoris | CPT/HCPCS: 78452; 93017; A9500 ==

== ENCOUNTER 2018-04-15 07:23 | Observation (INO) | payer OTHER, BC ==
[2018-04-15] MEDS ORDERED: FAMOTIDINE 20 MG TAB PO ONE (07:28)
[2018-04-15] MEDS ORDERED: ASPIRIN EC 325 MG TAB PO ONE (07:28)
[2018-04-15] MEDS ORDERED: DIAZEPAM 5 MG TAB PO ONE (07:28)
[2018-04-15] MEDS ORDERED: NS 1,000 ML IV ONE (07:28)
[2018-04-15] MEDS ORDERED: diphenhydrAMINE 25 MG CAP PO ONE (07:28)
[2018-04-15 08:04] LABS: PLATELET COUNT 121 10^3/uL (150-400)
[2018-04-15] MEDS ORDERED: MIDAZOLAM 2 MG/2 ML VIAL ONE (08:04)
[2018-04-15] MEDS ORDERED: fentaNYL 100 MCG/2 ML INJ ONE (08:04)
[2018-04-15] MEDS ORDERED: LIDOCAINE 1% 300 MG/30 ML SDV ONE (08:04)
[2018-04-15] MEDS ORDERED: IOPAMIDOL (ISOVUE-370) 150 ML BTL IV ONE (08:05)
[2018-04-15 08:12] LABS: INR 1.03 (0.83-1.16); PROTIME(PATIENT) 13.7 SEC (12.0-15.0)
--- NOTE | 2018-04-15 08:29 | PDHPUP ---
History & Physical Update H&P update statement: This history and physical update is based on an assessment of the patient which was completed after admission or registration (within 24 hours), but prior to the surgery/procedure. H&P update: H&P reviewed & patient examined, no change in patient's condition since H&P completed
--- NOTE | 2018-04-15 08:29 | PDPROPOC ---
Sedation Plan of Care Sedation Plan of Care: vital signs stable, mental status noted, patient educated of risks, benefits, alternatives, patient can tolerate sedation ASA Classification: ASA 2 Planned drugs: fentanyl, midazolam Mallampati Score: Class 2 Mallampati Reference Image: Patient passed 3-3-2 rule?: Yes
[2018-04-15] MEDS ORDERED: BIVALIRUDIN 250 MG/5 ML VIAL IV ONE (09:43)
[2018-04-15] MEDS ORDERED: CLOPIDOGREL BISULFATE 75 MG TAB ONE (10:20)
[2018-04-15] MEDS ORDERED: CLOPIDOGREL BISULFATE 75 MG TAB PO ONE (10:54)
[2018-04-15] MEDS ORDERED: NITROGLYCERIN 0.4 MG BTL SL PRN (10:54)
[2018-04-15] MEDS ORDERED: ONDANSETRON 4 MG/2 ML VIAL IVP PRN (10:54)
[2018-04-15] MEDS ORDERED: TEMAZEPAM 15 MG CAP PO PRN ×2 (10:54→12:21)
[2018-04-15] MEDS ORDERED: LORazepam 2 MG/ML INJ IVP PRN (10:54)
[2018-04-15] MEDS ORDERED: ATROPINE SULFATE 1 MG/10 ML SYR IVP PRN (10:54)
--- NOTE | 2018-04-15 11:37 | CPIP ---
DATE OF PROCEDURE: 04/15/2018 PROCEDURE: 1. Coronary angiography. 2. Bypass graft angiography. 3. Left ventricular end-diastolic pressure. 4. Stenting of posterior descending artery with Synergy drug-eluting stent. INDICATION: 1. Known coronary artery disease, status post bypass grafting surgery. 2. Chest pain consistent with class 3 angina. 3. Abnormal nuclear stress test with inferior infarct and moderate joe-infarct ischemia. ACCESS: Patient was prepped and draped in sterile fashion. 1% lidocaine was used to anesthetize the right inguinal region. A 6-Norwegian introducer sheath was placed selectively into the right common fe moral artery via modified Seldinger technique. CORONARY ANGIOGRAPHY: A 6-Norwegian JL4 was advanced to the left main coronary artery and images obtain ed. The left main coronary artery trifurcated into an LAD, ramus, and circumflex coronary arteries. The left main coronary artery appeared free of any significant disease. The left anterior descendin g coronary artery had a single discrete 50% stenosis in the mid vessel. The stenosis was eccentric i n character. The LAD gave rise to 1 prominent diagonal branch. The diagonal branch had a proximal 7 5% stenosis present. The distal vessel is being filled by a saphenous vein graft. The ramus coronar y artery was a large vessel. The ramus coronary artery appeared normal. The circumflex coronary art michelle is a small vessel. The circumflex coronary artery gave rise to 2 small OM branches. The circumf [place] coronary artery had an eccentric 25% stenosis in the proximal segment. 6-Norwegian JR4 was advanced to the right coronary artery and images obtained. The right coronary arter y was ectatic in the proximal mid segments. The right coronary artery gave rise to the PDA, as well as several posterior lateral branches. The proximal segment of the PDA had a segmental 85% stenosis present. BYPASS GRAFT ANGIOGRAPHY: A 6-Norwegian JR4 was used to engage the saphenous vein graft to right paez ry artery. The saphenous vein graft to right coronary artery was 100% flush occluded. The 6-Norwegian JR4 was used to engage the left subclavian artery. The 6-Norwegian JR4 was then exchanged for a 6-Frenc h NOHEMY catheter. The 6-Norwegian NOHEMY catheter was used to visualize the LUCIO to LAD graft. The LUCIO to LAD graft was atretic. A 6-Norwegian AL1 catheter was used to non-selectively engage the saphenous vein graft to diagonal artery. The saphenous vein graft to diagonal artery was widely patent. LEFT VENTRICULAR END-DIASTOLIC PRESSURE: A 6-Norwegian pigtail catheter was placed in the left ventricl e and pressure obtained. Left ventricular end-diastolic pressure was 11 mmHg. Left ventriculography was not performed in effort to spare contrast. PERCUTANEOUS CORONARY INTERVENTION OF THE POSTERIOR DESCENDING CORONARY ARTERY: A 6-Norwegian JR4 was a dvanced to the right coronary artery and images obtained. Angiography confirmed the presence of high -grade disease involving the posterior descending coronary artery. A Luge wire was placed in the dis funmi vessel and position verified by angiography. A 1.5 x 8 Emerge balloon was used to pre-dilate the lesion. Followup angiography demonstrated significant residual stenosis. A 2.25 x 12 Synergy drug- eluting stent was then placed across the lesion and deployed. Followup angiography demonstrated TERESE -3 flow. No residual stenosis. COMPLICATIONS: None. CONCLUSIONS: 1. 2-vessel coronary artery disease. 2. Patent saphenous vein graft to diagonal artery. 3. Atretic left internal mammary artery to left anterior descending graft. 4. Occluded saphenous vein graft to right coronary artery. 5. Status post successful stenting of the posterior descending coronary artery with a Synergy drug-e luting stent. /[id number]/MODL
[2018-04-15] MEDS: FAMOTIDINE 20 MG TAB PO SCH (21:42)
[2018-04-15] MEDS: METOPROLOL TARTRATE 25 MG TAB PO SCH (21:42)
[2018-04-16 05:04] LABS: PLATELET COUNT 116 10^3/uL (150-400)
[2018-04-16 07:33] VITALS: BP 144/84
[2018-04-16] MEDS ORDERED: ATORVASTATIN CALCIUM 40 MG TAB PO SCH (09:00)
[2018-04-16] MEDS ORDERED: ASPIRIN EC 325 MG TAB PO SCH (09:00)
[2018-04-16] MEDS ORDERED: CLOPIDOGREL BISULFATE 75 MG TAB PO SCH (09:00)
[2018-04-16] MEDS: FAMOTIDINE 20 MG TAB PO SCH (09:09)
[2018-04-16] MEDS: METOPROLOL TARTRATE 25 MG TAB PO SCH (09:09)
[2018-04-16] MEDS ORDERED: PNEUMOC 13-VAL CONJ-DIP CRM/PF 0.5 ML SYR IM ONE (09:32)
--- NOTE | 2018-04-16 10:47 | ASDISCHSUM ---
Discharge Information Plan Status:Home with No Needs Medically Cleared to Leave:04/15/2018 Discharge Date:04/15/2018 CM D/C Disposition:Home, Routine, Self-Care ADT D/C Disposition:Home, Routine, Self-Care Projected Discharge Date:04/15/2018 Transportation at D/C: Discharge Delay Reason: Follow-Up Date:04/15/2018 Discharge Slot: Final Diagnosis: Placement Information Patient Contact Information Contact Name:ELTON Relationship: Address:[address] [place] Phone: [facility]/Zip Code:[place] [address] Email: Financial Information Financial Class:Medicare Primary Plan Desc:MEDICARE OUTPATIENT Primary Plan Number:[id number] Secondary Plan Desc:[facility] Secondary Plan Number:[id number] Assessment Information LACE LACE Length of stay for Answers: 1 day current admission Acuity / Level of Answers: No Care: Did the patient have an inpatient admission? Comorbidities - select Answers: Any tumor (including all that apply lymphoma or leukemia) Coronary Artery Disease Diabetes (uncontrolled or controlled) Previous myocardial infarction # of Emergency department Answers: 0 visits in the last 6 months Score: 7 Date Signed: 04/16/2018 10:45 AM Electronically Signed By:Coco Duong RN Intervention Information Intervention Type:*JULI-Signed Date of Service:04/16/2018 10:13 AM Patient Type:Observation Staff Member:June Vargas Hours: Discipline: Severity: Comment:
--- NOTE | 2018-04-16 11:20 | GDS ---
ADMISSION DIAGNOSES: 1. Diagnosis chest pain. 2. Abnormal myocardial perfusion imaging study. 3. Known history of coronary artery disease with previous bypass surgery. 4. Valvular heart disease with previous mitral valve replacement. 5. Hypertension. 6. Type 2 diabetes. DISCHARGE DIAGNOSES: 1. Coronary artery disease with remote coronary artery bypass grafting, status post percutaneous cor onary intervention of the posterior descending artery branch off the right coronary with a 2.25 x 12 Synergy drug-eluting stent implantation. 2. History of valvular heart disease with remote mitral valve replacement, bioprosthetic. 3. Hypertension. 4. Hyperlipidemia. 5. Type 2 diabetes. PROCEDURES PERFORMED DURING HOSPITALIZATION: 1. Diagnostic heart catheterization with grafts. 2. Percutaneous coronary intervention of the posterior descending artery branch with a 2.25 x 12 Syn ergy drug-eluting stent implantation. 3. Electrocardiogram. BRIEF HISTORY: Please see H and P. The patient is an 82-year-old male with known history of CAD. H e has been having exertional chest pressure. He has recently underwent an MPI study, which noted an inferolateral with moderate joe-infarct ischemia . Due to this, the patient was scheduled to underg o coronary angiogram. HOSPITAL COURSE: Patient admitted through the CVC, prepped for procedure, and taken to the cardiac c atheterization lab. There, Dr. Jaffe performed a diagnostic coronary angiogram including bypass gra fts , findings were left main was free of any significant disease, LAD had a single discrete 50% sten osis in mid vessel, there was a single diagonal branch with a proximal 70% stenosis, ramus coronary a rtery was a single large vessel with no significant disease, circumflex was a small vessel that gives rise to 2 small OM branches, circumflex had a mid eccentric 25% stenosis in the proximal segment. R ight coronary was ectatic, in which was noted off a PDA branch with a proximal 85% stenosis. Bypass grafts were done, noting that SVG to the RCA was occluded, LUCIO to the LAD was atretic , and SVG to t he diagonal artery was patent, The pigtail catheter was crossed into the left ventricle, in which LVE DP was measured at 11 mmHg. At that time, percutaneous coronary intervention was performed, in which a 2.25 x 12 mm Synergy drug-eluting stent was placed in the ostial 85% narrowing of the PDA, no resi dual stenosis, no complications, patient was transferred back to CVC and ultimately to the PCU for ov ernight observation. There, he has maintained sinus rhythm with occasional PVC, no other malignant a rrhythmias or pauses noted. Patient reports no chest pain, pressure, or shortness of breath overnigh t. He has been up and walking the unit without difficulties. PHYSICAL EXAMINATION: GENERAL: Physical assessment done today showing general appearance, medium-bu ilt, well-groomed male. He is alert and oriented to person, place, time, situation. Appears to be under no acute distress. VITAL SIGNS: Current vital signs are blood pressure 144/84 , heart rate of 62, respirations 12, saturation 96% on room air, temperature 36.7 degrees Celsius. H EENT: Head is normocephalic. Lips and tongue are pink and moist with no signs of cyanosis. Conjunc tivae pink. NECK: Trachea is midline, +2 carotid pulses bilateral. No auscultated bruits. No jugu lar vein distention. RESPIRATORY: Lungs are clear to auscultation. No rhonchi, rales or wheezes. No accessory muscle use. No intercostal muscle retraction noted. CARDIAC: Regular rate, regular rh ythm. S1, S2. No S3, S4, gallops, rubs or murmurs noted. ABDOMEN: Soft, nontender. Bowel sounds x4 quadrants. No organomegaly. No palpable masses. SKIN: Warm, dry. No cyanosis. No clubbing. No peripheral edema. VASCULAR: +2 carotids bilateral, +2 radials bilateral, +1 dorsal pedal and pos terior tibial pulses bilateral. CATHETER INSERTION SITE: Right groin site, with no redness, swellin g, drainage, ecchymosis, or hematoma. No auscultated bruit over site. CMS checks within normal limi ts to the right lower extremity. LABORATORY STUDIES: Laboratory studies drawn today show a WBC of 3.85 hemoglobin 12.7, hematocrit of 38.5, platelet count of 116. Sodium 140, potassium 4.1, chloride 106, CO2 26, BUN 11, creatinine 0. 7, glucose 150, calcium 9.1. Fasting lipid panel done on day of admission showed triglycerides of 13 2, total cholesterol 122, HDL 40, LDL 56. PROCEDURES: Cardiac catheterization with grafts and percutaneous coronary intervention as mentioned above. This morning's electrocardiogram showed sinus rhythm, right bundle branch block, Q-waves note d in inferior leads, with nonspecific T-wave abnormalities in multiple leads. DISCHARGE DISPOSITION: Patient will be discharged home in stable condition. He is under activity re strictions of not lifting more than 10 pounds for the next week and no strenuous activity for the nex t 2 weeks. DISCHARGE MEDICATIONS: Please see discharge medication reconciliation sheet. Note, the patient's da lucie aspirin has been increased to 325 mg p.o. daily for 1 month. He has been started on Plavix 75 mg p.o. daily. He has metformin, but with recent IV contrast, he has been advised to not resume this u ntil tomorrow evening. DISCHARGE INSTRUCTIONS: Post percutaneous coronary intervention discharge instructions went over wit h the patient including activity restrictions, bleeding precautions, monitoring for signs of infectio n, and medication compliancy specifically the importance of dual antiplatelet therapy after CLIVE impla ntation. He has been told that he should not stop this medication unless confirmed by Dr. Jaffe or Cardiology. At the time of discharge, patient verbalizes understanding of all instructions and has n o questions or concerns. Patient has a followup appointment set up next week April [address] Jaffe. The patient has been told that if any problems or concerns come up post discharge, he is to notify our office or return to the hospital. Total time spent on discharge greater than 30 minutes. /[id number]/MODL
--- NOTE | 2018-04-16 12:29 | CPEKG ---
Test Reason : OPEN Blood Pressure : / mmHG Vent. Rate : 066 BPM Atrial Rate : 066 BPM P-R Int : 167 ms QRS Dur : 151 ms QT Int : 461 ms P-R-T Axes : 071 -23 003 degrees QTc Int : 484 ms Sinus rhythm Right bundle branch block Consider inferior infarct Confirmed by Sean Foley ([id number]) on 04/16/2018 12:28:27 PM Referred By: Confirmed By:Sean Foley
--- NOTE | 2018-04-17 22:36 | CPEKG ---
Test Reason : OPEN Blood Pressure : / mmHG Vent. Rate : 050 BPM Atrial Rate : 049 BPM P-R Int : 180 ms QRS Dur : 158 ms QT Int : 521 ms P-R-T Axes : 067 -09 -25 degrees QTc Int : 476 ms Sinus rhythm Right bundle branch block Inferior infarct Confirmed by Jacques Oviedo ([id number]) on 04/17/2018 10:35:54 PM Referred By: Confirmed By:Jacques Oviedo
--- NOTE | 2018-04-17 22:41 | CPEKG ---
Test Reason : OPEN Blood Pressure : / mmHG Vent. Rate : 063 BPM Atrial Rate : 063 BPM P-R Int : 166 ms QRS Dur : 151 ms QT Int : 468 ms P-R-T Axes : 073 -29 004 degrees QTc Int : 480 ms Sinus rhythm Right bundle branch block Inferior infarct Confirmed by Jacques Oviedo ([id number]) on 04/17/2018 10:41:05 PM Referred By: Confirmed By:Jacques Oviedo
== END 2018-04-16 11:31 | disposition home or self-care (01) ==
LOC: FCATH 07:23 → F2W 10:40
PROVIDERS: ADMIT Internal Medicine Cardiovascular Disease; ATTEND Internal Medicine Cardiovascular Disease
PROC: B2111ZZ Fluoroscopy of Multiple Coronary Arteries using Low Osmolar Contrast (ICD-10-PCS; principal; 2018-04-15)
PROC: B2131ZZ Fluoroscopy of Multiple Coronary Artery Bypass Grafts using Low Osmolar Contrast (ICD-10-PCS; principal; 2018-04-15)
PROC: 027034Z Dilation of Coronary Artery, One Artery with Drug-eluting Intraluminal Device, Percutaneous Approach (ICD-10-PCS; principal; 2018-04-15)
DX: I25.810 Atherosclerosis of coronary artery bypass graft(s) without angina pectoris (principal); I10 Essential (primary) hypertension; E78.5 Hyperlipidemia, unspecified; E11.9 Type 2 diabetes mellitus without complications; Z86.79 Personal history of other diseases of the circulatory system; Z95.3 Presence of xenogenic heart valve
CPT/HCPCS: 93005; 93459; C1725; C1760; C1769; C1874; C1887; C9600; J0583; J1644; J2250; J3010; Q9967

== ENCOUNTER → 2018-06-20 | Outpatient (CLI) | payer OTHER, BC | LOC: CIMAGING 10:08 | PROVIDERS: ATTEND Internal Medicine Cardiovascular Disease | DX: Z98.890 Other specified postprocedural states (principal); Z95.5 Presence of coronary angioplasty implant and graft | CPT/HCPCS: 71046-PO ==

== ENCOUNTER 2018-08-05 10:02 | Observation (INO) | payer OTHER, BC ==
--- NOTE | 2018-08-05 10:30 | CPEKG ---
Test Reason : OPEN Blood Pressure : / mmHG Vent. Rate : 065 BPM Atrial Rate : 066 BPM P-R Int : 169 ms QRS Dur : 152 ms QT Int : 459 ms P-R-T Axes : 065 -25 -16 degrees QTc Int : 478 ms Sinus rhythm Right bundle branch block Inferior infarct, age indeterminate Confirmed by Clarence Romero ([id number]) on 08/05/2018 10:29:55 AM Referred By: PHYSICIAN ED Confirmed By:Clarence Romero
--- NOTE | 2018-08-05 10:33 | EDPHY ---
H & P Stated Complaint: cp since yest . sob, ntg at 0700 . pn 09/18 Time Seen by Provider: 08/05/18 10:26 HPI/ROS: CHIEF COMPLAINT: Chest discomfort HISTORY OF PRESENT ILLNESS: Patient is an 82-year-old man who comes to the emergency department complaining of chest discomfort for the last 2 days. He has a history of diabetes as well as coronary artery disease status post three- vessel CABG and bioprosthetic mitral valve replacement in 2017. He also had another stent placed last year. He states that yesterday [place] developed some chest discomfort. His symptoms improved with nitroglycerin. They have persisted however throughout the night and this morning. This morning he took another dose of nitroglycerin with some improvement. No GI symptoms. No diaphoresis. No lightheadedness. No radiation of the discomfort. No shortness of breath. Severity: Moderate Modifying factors: None REVIEW OF SYSTEMS: Constitutional: denies: chills, fever, recent illness, recent injury EENTM: denies: blurred vision, double vision, nose congestion Respiratory: denies: cough, shortness of breath Cardiac: See HPI Gastrointestinal/Abdominal: denies: abdominal pain, diarrhea, nausea, vomiting, blood streaked stools Genitourinary: denies: dysuria, frequency, hematuria, pain Musculoskeletal: denies: joint pain, muscle pain Skin: denies: lesions, rash, jaundice, bruising Neurological: denies: headache, numbness, paresthesia, tingling, dizziness, weakness Hematologic/Lymphatic: denies: blood clots, easy bleeding, easy bruising Immunologic/allergic: denies: HIV/AIDS, transplant 10 systems reviewed and negative except as noted EXAM: GENERAL: Well-appearing, well-nourished and in no acute distress. HEAD: Atraumatic, normocephalic. EYES: Pupils equal round and reactive to light, extraocular movements intact, sclera anicteric, conjunctiva are normal. ENT: TMs normal, nares patent, oropharynx clear without exudates. Moist mucous membranes. NECK: Normal range of motion, supple without lymphadenopathy or JVD. LUNGS: Breath sounds clear to auscultation bilaterally and equal. No wheezes rales or rhonchi. HEART: Midline scar clean dry and intact, Regular rate and rhythm without murmurs, rubs or gallops. ABDOMEN: Soft, nontender, normoactive bowel sounds. No guarding, no rebound. No masses appreciated. BACK: No CVA tenderness, no spinal tenderness, step-offs or deformities EXTREMITIES: Normal range of motion, no pitting or edema. No clubbing or cyanosis. NEUROLOGICAL: Cranial nerves II through XII grossly intact. Normal speech, normal gait. 5/5 strength, normal movement in all extremities, normal sensation , normal reflexes PSYCH: Normal mood, normal affect. SKIN: Warm, dry, normal turgor, no visible rashes or lesions. Source: Patient Exam Limitations: No limitations - Medical/Surgical History Hx Asthma: No Hx Chronic Respiratory Disease: No Hx Diabetes: Yes Hx Cardiac Disease: Yes Hx Renal Disease: No Hx Cirrhosis: No Hx Alcoholism: No Hx HIV/AIDS: No Hx Splenectomy or Spleen Trauma: No Other PMH: CABG, stent, diabetes, PROSTATE CANCER, LYMPHOMA follicular, REFLUX, [place] 2005 - Family History Significant Family History: No pertinent family hx - Social History Smoking Status: Former smoker Alcohol Use: None Constitutional: Initial Vital Signs Heart Rate 69 08/05/18 10:08 Respiratory Rate 16 08/05/18 10:08 Blood Pressure 166/100 H 08/05/18 10:08 O2 Sat (%) 95 08/05/18 10:08 O2 Delivery Mode Nasal Cannula O2 (L/minute) 3 Allergies/Adverse Reactions: No Known Allergies Allergy (Verified 01/01/17 15:43) Home Medications: Medication Instructions Recorded Nitroglycerin [Nitrostat 0.4 mg 0.4 mg SL Q5M PRN 05/23/16 (*)] [place]-3 Fatty Acids [Fish Oil 1000 2,000 mg PO BID 05/23/16 mg (*)] Polyethylene Glycol 3350 [Miralax 17 gm PO DAILY 05/23/16 17 gm (*)] Ranitidine HCl [Zantac] 150 mg PO BID 01/01/17 Zaleplon [ZALEPLON] 10 mg PO HS PRN 01/26/17 metFORMIN HCL [Glucophage 500 mg 500 mg PO DAILY 01/26/17 (*)] Metoprolol Tartrate [Lopressor 25 12.5 mg PO BID #30 tab 02/01/17 mg (*)] Aspirin EC [Aspirin EC 325 mg (*)] 325 mg PO DAILY tab 04/16/18 Clopidogrel Bisulfate [Plavix (*)] 75 mg PO DAILY #30 tab 04/16/18 Acetaminophen [Tylenol ES 500 mg 500 mg PO Q6 PRN 08/05/18 (*)] Herbals/Supplements -Info Only 1 ea PO DAILY 08/05/18 Medical Decision Making - Diagnostics EKG Interpretation: An EKG obtained and was read and documented in trace view. Please see trace view for full reading and report. Sinus rhythm with right bundle branch block, unchanged from previous Imaging Results: Imaging Impressions Chest X-Ray 08/05/18 10:34 Impression: Stable chest without acute cardiopulmonary process. Chest/Thorax CTA 08/05/18 10:58 Impression: 1. No evidence of thrombopulmonary embolic disease. 2. Mild bronchitis and bibasilar atelectasis. 3. No pneumonia or effusion. 4. Stigmata of previous open-heart surgery and mitral valve replacement. Findings discussed with Emergency Department physician, at 08/05/2018 12:00. Imaging: Discussed imaging studies w/ call centre supervisor Radiologist ED Course/Re-evaluation: 12:00 p.m. the patient's symptoms have improved. We discussed his test results which are reassuring overall. The patient however is a concerning past medical history. I recommended admission for further workup and possibly repeat catheterization. He is agreeable to this plan. I have paged hospital service. He is however refusing ambulance transport. He states his will drive him. 12:20 p.m. discussed the case with Dr. Owens who will accept for Dr. Morgan to the PCU. Differential Diagnosis: Partial list of the Differential diagnosis considered include but were not limited to; acute coronary disease, anxiety, arrhythmia, pericarditis and although unlikely based on the history and physical exam, I also considered myocarditis, aneurysm, dissection, PE, pneumonia. - Data Points Medications Given: Acetaminophen (Tylenol) 650 mg PO Q4HRS PRN PRN Reason: Pain, Mild/Fever, Can Take PO Stop: 02/01/19 15:59 Last Admin: 08/05/18 17:41 Dose: 650 mg Famotidine (Pepcid) 20 mg PO BID TIMI Stop: 02/01/19 20:59 Last Admin: 08/05/18 20:22 Dose: 20 mg Metoprolol Tartrate (Lopressor) 12.5 mg PO BID TIMI Stop: 02/01/19 20:59 Last Admin: 08/05/18 20:21 Dose: 12.5 mg Qrvbs-3-Ckyn Ethyl Esters (Fish Oil) 2,000 mg PO BID TIMI Stop: 02/01/19 20:59 Last Admin: 08/05/18 20:22 Dose: 2,000 mg Discontinued Medications Aspirin (Aspirin) 324 mg PO EDNOW ONE Stop: 08/05/18 10:35 Last Admin: 08/05/18 10:46 Dose: 324 mg Point of Care Test Results: CBC CBC Collection Date 08/05/18 CBC Collection Time 10:35 WBC 2.24 RBC 4.50 HGB 14.1 HCT 43.1 PLT 106 Neut # 0.72 Neut 32.2 LYMPH # 1.10 LYMPH 49.1 MCV 95.8 Chemistry 08/05/18 08/05/18 10:36 10:35 POC Sodium 147 mEq/L H mEq/L (135-145) POC Potassium 3.7 mEq/L mEq/L (3.3-5.0) POC Chloride 105.0 mEq/L mEq/L (97-110) POC Total CO2 28 mEq/L mEq/L (22-31) POC BUN 11 mg/dL mg/dL (7-23) POC Creatinine 0.8 mg/dL mg/dL (0.7-1.3) POC Glucose 118 mg/dL H mg/dL (70-100) POC Calcium 9.8 mg/dL mg/dL (8.5-10.4) POC Troponin I 0.01 ng/mL ng/mL (0.00-0.08) D-Dimer D-Dimer Collection Date 08/05/18 D-Dimer Collection Time 10:35 D-Dimer (ng/ml) 475 Departure - Departure Disposition: [facility] Inpatient Acute Clinical Impression: Chest pain Qualifiers: Chest pain type: unspecified Qualified Code(s): R07.9 - Chest pain, unspecified Condition: Fair
[2018-08-05] MEDS ORDERED: ASPIRIN 81 MG CHEWABLE TAB PO ONE (10:34)
[2018-08-05] MEDS ORDERED: IOPAMIDOL (ISOVUE 370) 100 ML BTL IV ONE (11:13)
[2018-08-05] MEDS ORDERED: ONDANSETRON DISINTEGRATING 4 MG TAB PO PRN (16:00)
[2018-08-05] MEDS ORDERED: ACETAMINOPHEN 325 MG TAB PO PRN (16:00)
[2018-08-05] MEDS ORDERED: ONDANSETRON 4 MG/2 ML VIAL IVP PRN (16:00)
--- NOTE | 2018-08-05 16:58 | GHP ---
[f rep st] HISTORY AND PHYSICAL DATE OF ADMISSION: 08/05/2018 HISTORY OF PRESENT ILLNESS: The patient is a pleasant 82-year-old gentleman with history of coronary disease and bypass in 2017. He had an episode of chest pain while in [place] yesterday that was reli eved with nitroglycerin; another episode this morning. He describes it as possibly similar to the pr evious episodes of angina that he has had. In May 2018, so really about 3 months ago, he was admitted for an elective angiogram because of anginal type symptoms and a stress test with joe-infarct ischemia. At that time, he was found to fay ve patent grafts, a proximal 75% stenosis in a diagonal that was actually a recipient of one of the b ypass grafts. There was no intervention made at that time. The PDA also had an 85% proximal stenosi s. At that time, his LVEDP was 11 mmHg. The patient has not had heart failure symptoms such as PND or orthopnea. He has not had cough or fadia rtness of breath. No fever, chills. He has not tried long-acting nitrates for anginal control. REVIEW OF SYSTEMS: Complete 10-point review of systems was conducted, negative, except as noted in H PI. PAST MEDICAL HISTORY: 1. Coronary artery disease status post bypass. 2. Mitral valve replacement. 3. Prostate cancer status post radical prostatectomy. 4. Cataracts. 5. Hemorrhoids. 6. Inguinal hernia repair. SOCIAL HISTORY: He has 2-3 drinks a week. Quit smoking in the 1960s. 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 Lives in [place]. FAMILY HISTORY: Parents . ALLERGIES: No known drug allergies. HOME MEDICATIONS: While list is pendin. Aspirin. 2. Atorvastatin. 3. Clopidogrel. 4. Metformin. 5. Metoprolol. 6. Nitroglycerin. 7. Fish oil. 8. MiraLAX. 9. Ranitidine. PHYSICAL EXAMINATION: PRESENTING VITALS: Temp 37.3 blood pressure 150/80, pulse 63, breathing 16 ti mes a minute, 95% on room air. GENERAL: No acute distress. HEENT: Sclerae anicteric. Oropharynx clear. Mucous membranes moist. NECK: Supple. No lymphadenopathy or JVD. LUNGS: Clear to auscult ation bilaterally. HEART: S1, S2. ABDOMEN: Soft, nontender, nondistended. LOWER EXTREMITIES: No edema. Calves nontender. SKIN: Without rash. NEUROLOGIC: Exam is nonfocal. LABORATORY DATA: White count , hematocrit 38.5, platelets 116,000. He has chronic thrombo cytopenia. INR is 1. Point of care labs: Sodium 147, potassium 3.7, chloride 105, bicarb 28, BUN 1 1, creatinine 0.8. Troponin 0.01. EKG interpreted by me shows right bundle branch block which is not new. Chest x-ray interpreted by me shows no evidence of cardiopulmonary disease. CTA shows no pulmonary embolism; sequelae of prior CABG. I have discussed the case Dr. Clarence Romero. ASSESSMENT/PLAN: An 82-year-old gentle with likely anginal chest pain. 1. Chest pain: This fits the pattern of his previous angina. I have reached out to Cardiology to se e him given his recent angiogram with possible targets, particularly his PDA from his right artery. Alternatively, he could have a noninvasive trial of long-acting nitrates and gauge his response. 2. Hypernatremia: This is mild and the point of care labs are often incorrect, so I will just abbieo w. 3. History of mitral valve replacement: Patient does not have a murmur at this time. He is not hav ing heart failure or pulmonary edema type symptoms. 4. Hyperglycemia: This is mild nonfasting sample. DISPOSITION: Observation status. /[id number]/MODL
[2018-08-05] MEDS ORDERED: ZALEPLON 10 MG PO PRN (19:55)
[2018-08-05] MEDS: METOPROLOL TARTRATE 25 MG TAB PO SCH (20:21)
[2018-08-05] MEDS: OMEGA-3 FATTY ACIDS 1,000 MG CAP PO SCH (20:22)
[2018-08-05] MEDS: FAMOTIDINE 20 MG TAB PO SCH (20:22)
[2018-08-06] MEDS: FAMOTIDINE 20 MG TAB PO SCH (08:32)
[2018-08-06] MEDS: METOPROLOL TARTRATE 25 MG TAB PO SCH (08:32)
[2018-08-06] MEDS: OMEGA-3 FATTY ACIDS 1,000 MG CAP PO SCH (08:38)
[2018-08-06] MEDS ORDERED: POLYETHYLENE GLYCOL 3350 17 GM PKT PO SCH (09:00)
[2018-08-06] MEDS ORDERED: CLOPIDOGREL BISULFATE 75 MG TAB PO SCH (10:45)
[2018-08-06] MEDS ORDERED: NITROGLYCERIN 0.4 MG BTL SL PRN (10:45)
[2018-08-06] MEDS ORDERED: ASPIRIN EC 325 MG TAB PO SCH (10:45)
[2018-08-06 10:59] VITALS: BP 126/84
--- NOTE | 2018-08-06 11:01 | HOSPPROG ---
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 trop neg. no further cp. no events tele Objective: Vital Signs Temp Pulse Resp BP Pulse Ox 36.8 C 61 18 132/79 H 96 08/06/18 07:18 08/06/18 07:18 08/06/18 07:18 08/06/18 07:18 08/06/18 07:18 08/05/18 08/06/18 08/07/18 05:59 05:59 05:59 Intake Total 440 Balance 440 - Physical Exam Constitutional: no apparent distress, appears nourished Eyes: PERRL, anicteric sclera Ears, Nose, Mouth, Throat: moist mucous membranes, hearing normal Cardiovascular: regular rate and rhythym, no murmur, rub, or gallop Respiratory: no respiratory distress, no rales or rhonchi Gastrointestinal: normoactive bowel sounds, soft, non-tender abdomen Genitourinary: No short in urethra Skin: warm, normal color Musculoskeletal: full muscle strength Neurologic: AAOx3 ICD10 Worksheet Patient Problems: Problems Problem Status Onset Chest pain Acute Acute blood loss anemia Acute S/P CABG x 3 Acute ~01/25/17 S/P mitral valve replacement with bioprosthetic valve Acute ~01/25/17 CAD, multiple vessel Chronic Chronic leukopenia Chronic Dilated cardiomyopathy Chronic Severe mitral regurgitation Chronic Thrombocytopenia Chronic
--- NOTE | 2018-08-06 13:46 | PDCARPN ---
Cardiology Progress Note Chief Complaint: cp Assessment/Plan: Assessment: 82M PMH CAD/[place] 2005 s/p PCIs, LUCIO-LAD, SVG-Diag, SVG-PD and a bio-MVR with GABE ligation in 2015. In March, he had an episode of cp for which he was admitted at a hospital in [place]. He then had office MPI showing inferior infarct. He proceeded to [facility], and he was found to have occluded SVG to PD in 04/28. On Sunday, he noted cp while sitting in [employer]. Noted it as a dull moderate intensity ache. No associated dyspnea, N, diaphoresis. Took NTG with some relief. Yesterday had a similar episode. Therefore presented to the ED. ECG and enzymes have been negative so far. #. cp: has ruled out via ECG and enzymes reviewed case with Dr. Diaz will obtain TM stress test to r/o high risk findings add Amlodipine for anti-anginal therapy continue other meds as at present #. CAD: continue medical therapy #. MVR: last echo from 02/26 showed normal functioning prosthesis followed by Dr. Jaffe Plan: TM stress test now 08/06/18 13:28 Subjective: 82M with multiple PCIs, previous CABG, MVR, presents with 2 episodes L sided cp. Negative ECG and enzymes. Currently pain free. Reviewed/Discussed With: hospitalist (Dr. Morgan) Objective: Vital Signs (8 Hrs) Temp Pulse Resp BP Pulse Ox 08/06/18 10:58 97.4 F 58 L 14 126/84 H 93 08/06/18 07:18 98.3 F 61 18 132/79 H 96 Intake/Output (24 Hrs) 08/05/18 08/06/18 08/07/18 05:59 05:59 05:59 Intake Total 440 Balance 440 Intake: Oral (ml) 440 Other: Weight 80.9 kg Number of Voids 1 Toilet 2 Cardiac Labs: Cardiac Lab Results (72 Hrs) 08/05/18 08/05/18 22:23 16:19 Troponin I < 0.012 < 0.012 EKG: reviewed SR RBBB - Physical Exam Constitutional: no apparent distress Eyes: PERRL Ears, Nose, Mouth, Throat: moist mucous membranes Cardiovascular: regular rate and rhythm Respiratory: clear to auscultate bilat, no crackles Gastrointestinal: normoactive bowel sounds, no tenderness Genitourinary: No short in urethra Skin: no rashes, no abrasions Neurologic: AAOx3 Psychiatric: cooperative, interactive ICD10 Worksheet Patient Problems: Problems Problem Status Onset Chest pain Acute Acute blood loss anemia Acute S/P CABG x 3 Acute ~01/25/17 S/P mitral valve replacement with bioprosthetic valve Acute ~01/25/17 CAD, multiple vessel Chronic Chronic leukopenia Chronic Dilated cardiomyopathy Chronic Severe mitral regurgitation Chronic Thrombocytopenia Chronic
--- NOTE | 2018-08-06 14:23 | PDCARST ---
CAR Stress Test Results Type of Stress Test: TM stress test Indication: cp Description of Procedure: After informed consent was obtained, pt was exercised according to Kiel Protocol. Monitoring was performed with standard stress service tester electrode placement. Vital signs were monitored according to protocol throughout the procedure. STRESS EKG AND HEMODYNAMIC DATA. Exercise time: 6: 15 min. This is equivalent to: 7.2 METS. Resting heart rate: 75 bpm. Resting blood pressure: 120/80 mmHg. Resting O2 saturation: 95 %. Peak heart rate: 126 bpm. This is 91 % of age predicted maximum heart rate response. Peak blood pressure: 188/84 mmHg. Exercise O2: 93 %. Arrhythmias : frequent PVCs. Reason for termination: The test was stopped due to maximal effort . Symptoms: The patient experienced no typical symptoms of angina during stress or recovery. STRESS TEST ANALYSIS. Baseline ECG: SR, RBBB with frequent PVCs. Stress ECG: SR, PVCs. No exercise induced ischemic ECG changes. Rhythm: PVC arrhythmias noted during exercise and recovery. Blood pressure: normal blood pressure response to exercise. Exercise tolerance: The patient has normal exercise tolerance adjusted for age and gender. Symptoms: No exercise induced symptoms. IMPRESSIONS: Stress ECG is negative for ischemia. The Ribeiro Treadmill Score is +6 consistent with low cardiovascular risk (<1% annual mortality). Impression: DTS low risk. Frequent PVCs at baseline and with stress Conclusion: OK for discharge with cardiology follow up
--- NOTE | 2018-08-06 14:42 | ASMTLACE ---
LACE Length of stay for Answers: Less than 1 day current admission Acuity / Level of Answers: No Care: Did the patient have an inpatient admission? Comorbidities - select Answers: Any tumor (including all that apply lymphoma or leukemia) Coronary Artery Disease Diabetes (uncontrolled or controlled) Previous myocardial infarction # of Emergency department Answers: 1-2 visits in the last 6 months Score: 7 Date Signed: 08/06/2018 02:41 PM Electronically Signed By:Salma Avila
--- NOTE | 2018-08-06 17:19 | GDS ---
[f rep st] DISCHARGE SUMMARY DISCHARGE DIAGNOSES: 1. History of coronary disease. 2. Chest pain with a negative stress test. 3. Sternotomy pain. Please see admission history and physical by Dr. Justin Morgan. Patient admitted with chest pain wi th a negative evaluation. He had a recent angiogram that did show some potential possibilities of in tervention. He underwent a treadmill test with no EKG changes 6-1/2 minutes, which is goo d exercise tolerance. He had amlodipine added as an antianginal. Because of some sternotomy pain, rylee vasquez had Neurontin 100 h.s. added as well. I gave him prescriptions with 1 refill for these. He will f ollow up with Cardiology as an outpatient. /[id number]/MODL
[2018-08-06] MEDS ORDERED: ATORVASTATIN CALCIUM 10 MG TAB PO SCH (21:00)
== END 2018-08-06 15:00 | disposition home or self-care (01) ==
LOC: CED 10:02 → CEDHOLD 12:06 → F2W 15:28
PROVIDERS: ADMIT Internal Medicine; ATTEND Internal Medicine
DX: R07.9 Chest pain, unspecified (principal); I25.810 Atherosclerosis of coronary artery bypass graft(s) without angina pectoris; E11.9 Type 2 diabetes mellitus without complications; I45.10 Unspecified right bundle-branch block; I25.2 Old myocardial infarction; K21.9 Gastro-esophageal reflux disease without esophagitis; Z79.84 Long term (current) use of oral hypoglycemic drugs; Z79.82 Long term (current) use of aspirin; Z85.46 Personal history of malignant neoplasm of prostate; Z87.891 Personal history of nicotine dependence; Z95.3 Presence of xenogenic heart valve; Z95.5 Presence of coronary angioplasty implant and graft; Z95.1 Presence of aortocoronary bypass graft
CPT/HCPCS: 71046; 71275; 93005; 93017; 99285; G0378; Q9967; 80048-ER; 84484-ER